=== PATIENT | male | born 1980 | race Caucasian/White ===

== ENCOUNTER 2017-05-10 20:16 | Emergency (ER) | payer MEDICAID ==
[~2017-05-10] VITALS: Ht 182.9 cm; Wt 76.2 kg
[~2017-05-10 20:16] MED LIST: BUPR75TA5 PO; CHLO25TA4 PO; CLON-364 PO; FLUO40CA9 PO; HALO10TA PO; LISI-167 PO; LISI5TAB7 PO; LITH150C PO; LITH600C PO; LORA-446 PO; MIRT30TA PO; NALT50TA PO; OLAN15TA3 PO; PROP10TA PO; PROP60TA PO; QUET25TA5 PO; QUET400T4 PO; TRIH5TAB2 PO; WARF5TAB7 PO
[2017-05-10] MEDS ORDERED: HALOPERIDOL 5 MG/ML ONE (22:03)
[2017-05-10] MEDS ORDERED: HALOPERIDOL 5 MG/ML IM ONE (22:23)
[2017-05-10 22:29] LABS: MEAN CORPUSCULAR VOLUME 91.2 fL (81-97); MEAN PLATELET VOLUME 9.6 fL (7.4-10.4); PLATELET COUNT 268 x10^3/uL (130-400); RED BLOOD COUNT 4.99 x10^6/uL (4.38-5.82); RED CELL DISTRIBUTION WIDTH 13.6 % (9.4-14.8)
[2017-05-10 22:37] LABS: ANION GAP 8 mmol/L (5-15); CHLORIDE 108 mmol/L (98-107)
[2017-05-10 22:38] LABS: ALBUMIN 3.8 g/dL (3.4-5.0); SALICYLATE LEVEL 4.8 mg/dL (2.8-20.0)
[2017-05-10 22:41] LABS: ACETAMINOPHEN < 2 mcg/mL (10-30)
[2017-05-10 22:50] LABS: BASOPHILS # (AUTO) 0.05 x10^3/uL (0-0.1); BASOPHILS % (AUTO) 0 % (0-1); EOSINOPHILS # (AUTO) 0.08 x10^3/uL (0-0.4); EOSINOPHILS % (AUTO) 1 % (1-7); LYMPHOCYTES % (AUTO) 15 % (22-44); MD SCAN; MONOCYTES # (AUTO) 1.57 x10^3/uL (0.2-0.8); MONOCYTES % (AUTO) 12 % (2-9); NEUTROPHILS # (AUTO) 9.29 x10^3/uL (1.8-6.8); NEUTROPHILS % (AUTO) 72 % (42-75)
[2017-05-10 22:58] VITALS: BP 141/87
== END 2017-05-11 00:10 | disposition home or self-care (01) ==
LOC: ED 22:40
DX: F23 Brief psychotic disorder (principal); F20.9 Schizophrenia, unspecified; I10 Essential (primary) hypertension; F31.9 Bipolar disorder, unspecified; G40.909 Epilepsy, unspecified, not intractable, without status epilepticus
CPT/HCPCS: 36415; 80048; 80307; 80329; 82040; 85025; 96372; 99284; J1630; G0479; G0480

== ENCOUNTER 2017-10-11 20:19 | Inpatient (IN) | payer MEDICAID ==
[~2017-10-11] VITALS: Ht 182.9 cm; Wt 78.1 kg
[~2017-10-11 20:19] MED LIST changes: +WARF-36 PO; -WARF5TAB7 PO
[2017-10-11] MEDS ORDERED: ZIPRASIDONE 20 MG INJ IM ONE ×2 (20:25→20:30)
[2017-10-11 20:39] LABS: BASOPHILS # (AUTO) 0.06 x10^3/uL (0-0.1); BASOPHILS % (AUTO) 1 % (0-1); EOSINOPHILS # (AUTO) 0.22 x10^3/uL (0-0.4); EOSINOPHILS % (AUTO) 3 % (1-7); LYMPHOCYTES # (AUTO) 3.31 x10^3/uL (1-3.4); LYMPHOCYTES % (AUTO) 45 % (22-44); MD NO; MEAN CORPUSCULAR HGB CONC 34.4 g/dL (33.2-36.2); MEAN PLATELET VOLUME 8.4 fL (7.4-10.4); MONOCYTES # (AUTO) 0.54 x10^3/uL (0.2-0.8); MONOCYTES % (AUTO) 7 % (2-9); NEUTROPHILS # (AUTO) 3.27 x10^3/uL (1.8-6.8); NEUTROPHILS % (AUTO) 44 % (42-75); PLATELET COUNT 255 x10^3/uL (130-400); RED CELL DISTRIBUTION WIDTH 13.3 % (9.4-14.8)
[2017-10-11 20:52] LABS: ALANINE AMINOTRANSFERASE 30 U/L (12-78); ALBUMIN 3.6 g/dL (3.4-5.0); ANION GAP 9 mmol/L (5-15); CALCIUM 8.9 mg/dL (8.5-10.1); CHLORIDE 109 mmol/L (98-107)
[2017-10-11 20:57] LABS: ALKALINE PHOSPHATASE 129 U/L (45-117); BILIRUBIN,TOTAL 0.2 mg/dL (0.2-1.0); TROPONIN I < 0.015 ng/mL (0.000-0.045)
[2017-10-11 21:02] LABS: THYROID STIMULATING HORMONE 0.949 mIU/L (0.358-3.740)
[2017-10-11 21:25] LABS: AMPHETAMINE SCREEN, URINE Positive (Negative); BARBITURATE SCREEN, URINE Negative (Negative); BENZODIAZEPINE SCREEN, URINE Positive (Negative); CANNABINOID SCREEN, URINE Negative (Negative); COCAINE SCREEN, URINE Negative (Negative); METHADONE SCREEN, URINE Negative (Negative); OPIATE SCREEN, URINE Negative (Negative)
[2017-10-11 22:15] VITALS: BP 110/78
[2017-10-11 22:58] VITALS: BP 111/74
[2017-10-11] MEDS ORDERED: BISACODYL 10 MG SUPP PR PRN (23:00)
[2017-10-11] MEDS ORDERED: HEPARIN 5,000 UNITS/ML, 1ML SQ SCH (23:00)
[2017-10-11] MEDS: LISINOPRIL 10 MG TABLET PO SCH (23:00)
[2017-10-11] MEDS: SODIUM CHLORIDE FLUSH 10ML SYR IVF SCH (23:00)
[2017-10-11] MEDS ORDERED: ACETAMINOPHEN 325 MG TABLET PO PRN (23:00)
[2017-10-11] MEDS ORDERED: hydrALAzine 20 MG/ML, 1ML IVPush PRN (23:00)
[2017-10-11] MEDS ORDERED: PROZAC MC SCH (23:00)
[2017-10-11] MEDS ORDERED: HALOPERIDOL 5 MG TABLET PO PRN (23:00)
[2017-10-11] MEDS ORDERED: ONDANSETRON 2MG/ML, 2ML IVPush PRN (23:00)
[2017-10-11] MEDS: PROPRANOLOL 60 MG TABLET PO SCH (23:00)
[2017-10-11] MEDS: QUETIAPINE 200 MG TABLET PO SCH (23:00)
[2017-10-11] MEDS ORDERED: POLYETHYLENE GLYCOL 17 GM PACKET PO PRN (23:00)
[2017-10-11] MEDS ORDERED: NITROGLYCERIN 0.4 MG BOTTLE (25 TABS) SL PRN (23:00)
[2017-10-11 23:06] LABS: INTERNATIONAL NORMALIZED RATIO 1.02 (0.93-1.1); PROTHROMBIN TIME 10.5 Seconds (9.6-11.5)
[2017-10-12 02:29] VITALS: BP 113/71
[2017-10-12 02:40] LABS: BASOPHILS # (AUTO) 0.11 x10^3/uL (0-0.1); BASOPHILS % (AUTO) 2 % (0-1); EOSINOPHILS # (AUTO) 0.29 x10^3/uL (0-0.4); EOSINOPHILS % (AUTO) 5 % (1-7); LYMPHOCYTES # (AUTO) 3.08 x10^3/uL (1-3.4); LYMPHOCYTES % (AUTO) 52 % (22-44); MD NO; MEAN CORPUSCULAR HEMOGLOBIN 31.7 pg (27.5-34.5); MEAN CORPUSCULAR HGB CONC 33.8 g/dL (33.2-36.2); MEAN CORPUSCULAR VOLUME 93.8 fL (81-97); MEAN PLATELET VOLUME 8.5 fL (7.4-10.4); MONOCYTES # (AUTO) 0.31 x10^3/uL (0.2-0.8); MONOCYTES % (AUTO) 5 % (2-9); NEUTROPHILS # (AUTO) 2.18 x10^3/uL (1.8-6.8); NEUTROPHILS % (AUTO) 37 % (42-75); PLATELET COUNT 246 x10^3/uL (130-400); RED BLOOD COUNT 5.62 x10^6/uL (4.38-5.82); RED CELL DISTRIBUTION WIDTH 14.1 % (9.4-14.8)
[2017-10-12 02:47] LABS: TROPONIN I < 0.015 ng/mL (0.000-0.045)
[2017-10-12 02:48] LABS: ALANINE AMINOTRANSFERASE 32 U/L (12-78); ALBUMIN 3.7 g/dL (3.4-5.0); ANION GAP 7 mmol/L (5-15); CALCIUM 8.6 mg/dL (8.5-10.1); CHLORIDE 112 mmol/L (98-107); CREATININE 0.84 mg/dL (0.7-1.3)
[2017-10-12 02:50] LABS: ALKALINE PHOSPHATASE 136 U/L (45-117); BILIRUBIN,TOTAL 0.4 mg/dL (0.2-1.0); TOTAL PROTEIN 7.1 g/dL (6.4-8.2)
[2017-10-12 06:13] VITALS: BP 108/68
[2017-10-12 08:08] VITALS: BP 148/99
[2017-10-12] MEDS: SENNA/DOCUSATE TABLET PO SCH (09:00)
[2017-10-12 09:10] LABS: TROPONIN I < 0.015 ng/mL (0.000-0.045)
[2017-10-12] MEDS: NALTREXONE HCL 50 MG TABLET PO SCH (09:22)
[2017-10-12] MEDS: LISINOPRIL 10 MG TABLET PO SCH ×2 (09:22→21:17)
[2017-10-12] MEDS: PROPRANOLOL 60 MG TABLET PO SCH ×2 (09:23→21:17)
[2017-10-12] MEDS: SODIUM CHLORIDE FLUSH 10ML SYR IVF SCH ×2 (09:23→21:16)
[2017-10-12] MEDS: FLUOXETINE HCL 20 MG CAPSULE PO SCH (09:23)
[2017-10-12] MEDS: MIRTAZAPINE 30 MG TAB.RAPDIS PO SCH (10:08)
[2017-10-12 13:18] VITALS: BP 133/96
[2017-10-12] MEDS ORDERED: MAALOX/HYOSCYAMINE/LIDOCAINE 45 ML BTL PO ONE (16:30)
[2017-10-12] MEDS: OMEPRAZOLE 20 MG CAPSULE.DR PO SCH (16:59)
[2017-10-12] MEDS ORDERED: WARFARIN 7.5 MG TABLET PO-COUM SCH (18:00)
[2017-10-12 18:35] VITALS: BP 137/77
[2017-10-12] MEDS: QUETIAPINE 200 MG TABLET PO SCH (21:17)
[2017-10-13 02:03] VITALS: BP 133/79
[2017-10-13 06:30] VITALS: BP 97/65
[2017-10-13] MEDS: SENNA/DOCUSATE TABLET PO SCH (09:00)
[2017-10-13 09:45] VITALS: BP 119/74
[2017-10-13] MEDS: OMEPRAZOLE 20 MG CAPSULE.DR PO SCH (09:45)
[2017-10-13] MEDS: FLUOXETINE HCL 20 MG CAPSULE PO SCH (09:45)
[2017-10-13] MEDS: NALTREXONE HCL 50 MG TABLET PO SCH (09:46)
[2017-10-13] MEDS: MIRTAZAPINE 30 MG TAB.RAPDIS PO SCH (09:46)
[2017-10-13] MEDS: SODIUM CHLORIDE FLUSH 10ML SYR IVF SCH (09:46)
[2017-10-13] MEDS: PROPRANOLOL 60 MG TABLET PO SCH (09:46)
[2017-10-13] MEDS: LISINOPRIL 10 MG TABLET PO SCH (09:46)
[2017-10-13] MEDS ORDERED: WARF7.5T PO-COUM (10:41)
[2017-10-13] MEDS ORDERED: CHLO25TA4 PO (10:41)
[2017-10-13] MEDS ORDERED: QUET200T PO (10:41)
[2017-10-13] MEDS ORDERED: FLUO20CA8 PO (10:41)
[2017-10-13] MEDS ORDERED: LISI-167 PO (10:41)
[2017-10-13] MEDS ORDERED: MIRT30TA6 PO (10:41)
[2017-10-13] MEDS ORDERED: PROP60TA PO (11:48)
[2017-10-13] MEDS ORDERED: MIRT30TA4 PO (11:50)
[2017-10-13 12:55] VITALS: BP 123/78
[2017-10-14 10:07] LABS: CREATININE 0.93 mg/dL (0.7-1.3); MEAN CORPUSCULAR HEMOGLOBIN 32.4 pg (27.5-34.5); RED BLOOD COUNT 5.31 x10^6/uL (4.38-5.82)
== END 2017-10-13 13:59 | disposition home or self-care (01) | DRG 313 ==
LOC: EDSEX → EDBD → MERGE 20:19 → ED 22:24 → EDIP 22:38 → 5SO 22:47
PROVIDERS: ADMIT Internal Medicine; ATTEND Internal Medicine
DX: R07.89 Other chest pain (principal); T43.625A Adverse effect of amphetamines, initial encounter; F10.10 Alcohol abuse, uncomplicated; F15.10 Other stimulant abuse, uncomplicated; Z88.0 Allergy status to penicillin; F17.200 Nicotine dependence, unspecified, uncomplicated; F20.9 Schizophrenia, unspecified; F31.9 Bipolar disorder, unspecified; K21.9 Gastro-esophageal reflux disease without esophagitis; G40.909 Epilepsy, unspecified, not intractable, without status epilepticus; I10 Essential (primary) hypertension; I25.2 Old myocardial infarction; Z86.711 Personal history of pulmonary embolism
CPT/HCPCS: 36415; 71045; 80053; 80307; 82962; 84443; 84484; 85025; 85379; 85610; 93005; 93306; 99285; J2405

== ENCOUNTER 2017-10-29 00:23 | Emergency (ER) | payer MEDICAID ==
[~2017-10-29] VITALS: Ht 182.9 cm; Wt 100.0 kg
[~2017-10-29 00:23] MED LIST changes: +FLUO20CA8 PO; +MIRT30TA4 PO; +MIRT30TA6 PO; +QUET200T PO; +WARF7.5T PO-COUM
[2017-10-29] MEDS ORDERED: ZIPRASIDONE 20 MG INJ IM ONE ×3 (01:00→01:30)
[2017-10-29 01:57] LABS: BASOPHILS # (AUTO) 0.05 x10^3/uL (0-0.1); BASOPHILS % (AUTO) 1 % (0-1); EOSINOPHILS # (AUTO) 0.16 x10^3/uL (0-0.4); EOSINOPHILS % (AUTO) 3 % (1-7); LYMPHOCYTES % (AUTO) 41 % (22-44); MD NO; MEAN CORPUSCULAR HEMOGLOBIN 32.1 pg (27.5-34.5); MEAN CORPUSCULAR HGB CONC 34.4 g/dL (33.2-36.2); MEAN CORPUSCULAR VOLUME 93.2 fL (81-97); MEAN PLATELET VOLUME 8.6 fL (7.4-10.4); MONOCYTES # (AUTO) 0.54 x10^3/uL (0.2-0.8); MONOCYTES % (AUTO) 8 % (2-9); NEUTROPHILS # (AUTO) 3.14 x10^3/uL (1.8-6.8); NEUTROPHILS % (AUTO) 48 % (42-75); PLATELET COUNT 253 x10^3/uL (130-400); RED BLOOD COUNT 4.75 x10^6/uL (4.38-5.82); RED CELL DISTRIBUTION WIDTH 12.8 % (9.4-14.8)
[2017-10-29 02:09] LABS: ALBUMIN 3.6 g/dL (3.4-5.0); ANION GAP 11 mmol/L (5-15); CALCIUM 8.1 mg/dL (8.5-10.1); CHLORIDE 112 mmol/L (98-107); CREATININE 0.83 mg/dL (0.7-1.3); SALICYLATE LEVEL 6.1 mg/dL (2.8-20.0)
[2017-10-29 02:15] LABS: ACETAMINOPHEN < 2 mcg/mL (10-30)
[2017-10-29 08:15] VITALS: BP 145/84
== END 2017-10-29 10:03 | disposition home or self-care (01) ==
LOC: ED 00:35
DX: R45.851 Suicidal ideations (principal); F10.20 Alcohol dependence, uncomplicated; G40.909 Epilepsy, unspecified, not intractable, without status epilepticus; Z79.899 Other long term (current) drug therapy
CPT/HCPCS: 36415; 80048; 80307; 80329; 82040; 85025; 96372; 99284; J3486; G0480

== ENCOUNTER 2018-01-30 18:09 | Emergency (ER) | payer MEDICAID ==
[~2018-01-30] VITALS: Ht 182.9 cm; Wt 75.6 kg
[~2018-01-30 18:09] MED LIST changes: -CLON-364 PO; +CLON0.5T11 PO
[2018-01-30 19:17] VITALS: BP 101/64
== END 2018-01-30 19:37 | disposition left against medical advice (07) ==
LOC: ED 19:34
DX: F15.129 Other stimulant abuse with intoxication, unspecified (principal); G40.909 Epilepsy, unspecified, not intractable, without status epilepticus; I10 Essential (primary) hypertension
CPT/HCPCS: 99283

== ENCOUNTER 2018-05-20 10:50 | Emergency (ER) | payer MEDICAID ==
[~2018-05-20] VITALS: Ht 182.9 cm; Wt 74.8 kg
[~2018-05-20 10:50] MED LIST changes: -PROP10TA PO; +PROP10TA16 PO
[2018-05-20 10:54] VITALS: BP 88/49
--- NOTE | 2018-05-20 11:41 | NUR ---
PT TO ROOM ROOM SECURED BELONGINGS REMOVED AND SECURED STS HE IS NOT SI BUT WILL KILL HIMSELF IF HE DOES NOT GET HELP AND FOOD
--- NOTE | 2018-05-20 11:45 | NUR ---
PT REFUSED TO GIVE UP CELL PHONE AND CALLED 911 SECURITY REMOVED THE PHONE FROM THE PT LITHOGRAPHIC PRESS OPERATOR CALLED US AND WAS PROVIDED THE INFORMATION RE THE SITUATION
--- NOTE | 2018-05-20 11:51 | NUR ---
ERP TO THE BS ERP TO DC PT AFTER EXAM
== END 2018-05-20 11:58 | disposition home or self-care (01) ==
LOC: ED 11:45
DX: F20.0 Paranoid schizophrenia (principal); F17.200 Nicotine dependence, unspecified, uncomplicated; F31.9 Bipolar disorder, unspecified; I10 Essential (primary) hypertension; G40.909 Epilepsy, unspecified, not intractable, without status epilepticus
CPT/HCPCS: 99284

== ENCOUNTER 2018-10-08 12:44 | Emergency (ER) | payer MEDICAID ==
[~2018-10-08] VITALS: Ht 182.9 cm; Wt 78.0 kg
[~2018-10-08 12:44] MED LIST changes: -MIRT30TA6 PO; +MIRT30TA97 PO
[2018-10-08] MEDS ORDERED: LORazepam 2 MG/ML, 1ML IM ONE (13:00)
[2018-10-08] MEDS ORDERED: ZIPRASIDONE 20 MG INJ IM ONE ×2 (13:00→13:01)
[2018-10-08] MEDS ORDERED: LORazepam 2 MG/ML, 1ML ONE (13:01)
--- NOTE | 2018-10-08 13:33 | NUR ---
BIB [facility]OC SCREAMING THREATENING SI BY TRAFFIC VERBALLY ASSAULTIVE TO STAFF ON ARRIVAL REFUSING VITAL AND MOST ASSESMENT QUESTIONS REFUSING MONITORING PT PLACED IN A SECURE ROOM W A SITTER BELONGINGS REMOVED AND SECURED MEDS GIVEN PER ORDERS SITTER IN THE PLASCENCIA
--- NOTE | 2018-10-08 14:57 | NUR ---
ABLE TO ASSES VITAL PT REMAINS SLEEPING AT THIS TIME
[2018-10-08 15:38] LABS: BASOPHILS # (AUTO) 0.04 x10^3/uL (0-0.1); BASOPHILS % (AUTO) 1 % (0-1); EOSINOPHILS % (AUTO) 2 % (1-7); LYMPHOCYTES # (AUTO) 1.92 x10^3/uL (1-3.4); LYMPHOCYTES % (AUTO) 44 % (22-44); MD NO; MEAN CORPUSCULAR HEMOGLOBIN 31.5 pg (27.5-34.5); MEAN CORPUSCULAR HGB CONC 33.7 g/dL (33.2-36.2); MEAN CORPUSCULAR VOLUME 93.5 fL (81-97); MEAN PLATELET VOLUME 8.3 fL (7.4-10.4); MONOCYTES # (AUTO) 0.23 x10^3/uL (0.2-0.8); MONOCYTES % (AUTO) 5 % (2-9); NEUTROPHILS % (AUTO) 48 % (42-75); PLATELET COUNT 240 x10^3/uL (130-400); RED BLOOD COUNT 5.09 x10^6/uL (4.38-5.82); RED CELL DISTRIBUTION WIDTH 13.7 % (9.4-14.8)
[2018-10-08 15:58] LABS: ALBUMIN 3.8 g/dL (3.4-5.0); ANION GAP 5 mmol/L (5-15); CALCIUM 8.4 mg/dL (8.5-10.1); CHLORIDE 115 mmol/L (98-107); SALICYLATE LEVEL 5.7 mg/dL (2.8-20.0)
[2018-10-08 16:01] LABS: ALANINE AMINOTRANSFERASE 23 U/L (12-78); ALKALINE PHOSPHATASE 103 U/L (45-117); CREATININE 0.96 mg/dL (0.7-1.3); TOTAL PROTEIN 7.3 g/dL (6.4-8.2)
[2018-10-08 16:05] LABS: ACETAMINOPHEN < 2 mcg/mL (10-30); BILIRUBIN,TOTAL < 0.1 mg/dL (0.2-1.0)
[2018-10-08 17:33] VITALS: BP 134/95
--- NOTE | 2018-10-08 18:13 | NUR ---
PT REMAINS SLEEPING MOST OF THE DAY COOPERATIVE SITTER HAS REMAINED IN THE PLASCENCIA WATCHING THE PT
--- NOTE | 2018-10-08 19:10 | NUR ---
RECEIVED REPORT FROM LIZET Wolfe RN. PT RESTING IN [facility] IN NAD BEING OBSERVED BY IVAN. BREATHALIZER WAS 0.169. PT UPDATED ON POC.
--- NOTE | 2018-10-08 20:40 | NUR ---
PT RESTING IN NAD BEING OBSERVED BY SITTER. WAITING FOR PT TO BECOME SOBER TO HAVE PT RE-EVALUATED.
--- NOTE | 2018-10-08 22:26 | NUR ---
REPORT TO CHARLES CHAPMAN.
--- NOTE | 2018-10-08 22:47 | NUR ---
ASSUMED CARE OF PATIENT. REPORT GIVEN FROM ARI WISE
--- NOTE | 2018-10-08 23:08 | NUR ---
PT RESTING IN ROOM. NO ACUTE DISTRESS NOTED. CALL LIGHT IN PLACE. WILL CONTINUE TO MONITOR.
--- NOTE | 2018-10-08 23:24 | NUR ---
TELEPSYCH INITIATED. 27170 BOT PLACED AT BS.
--- NOTE | 2018-10-08 23:29 | NUR ---
PT RESTING IN ROOM. NO ACUTE DISTRESS NOTED. SITTER AT DOOR. WILL CONTINUE TO MONITOR.
[2018-10-08] MEDS ORDERED: IBUPROFEN 600 MG TABLET PO ONE (23:30)
--- NOTE | 2018-10-09 00:20 | NUR ---
REPORT GIVEN TO SOC.
--- NOTE | 2018-10-09 01:20 | NUR ---
pt asking to leave. ERP OKAY WITH PT LEAVING. PT HAS NOT EXPRESSED SI TO THIS RN. PT BELONGINGS RETURNED. PT ABLE TO DRESS HIMSELF. PT GIVEN TAXI VOUCHER FOR SAFE DC. PT AMBULATED STEADILY TO DC DESK.
== END 2018-10-09 01:16 | disposition home or self-care (01) ==
LOC: ED 16:21
DX: F20.0 Paranoid schizophrenia (principal); F15.150 Other stimulant abuse with stimulant-induced psychotic disorder with delusions; F10.229 Alcohol dependence with intoxication, unspecified; F31.9 Bipolar disorder, unspecified; I10 Essential (primary) hypertension; F41.1 Generalized anxiety disorder; F20.9 Schizophrenia, unspecified; F17.210 Nicotine dependence, cigarettes, uncomplicated; Z86.718 Personal history of other venous thrombosis and embolism; G40.909 Epilepsy, unspecified, not intractable, without status epilepticus
CPT/HCPCS: 36415; 80053; 80307; 85025; 96372; 99284; J2060; J3486

== ENCOUNTER 2018-11-28 11:28 | Emergency (ER) | payer MEDICAID ==
[~2018-11-28] VITALS: Ht 182.9 cm; Wt 73.9 kg
[2018-11-28 11:30] VITALS: BP 130/90
== END 2018-11-28 13:32 | disposition home or self-care (01) ==
LOC: ED 12:26
DX: L02.512 Cutaneous abscess of left hand (principal); I10 Essential (primary) hypertension; L03.012 Cellulitis of left finger
CPT/HCPCS: 26010; 82962; 99283

== ENCOUNTER 2019-05-22 23:27 | Emergency (ER) | payer MEDICAID ==
[~2019-05-22] VITALS: Ht 182.9 cm; Wt 73.9 kg
--- NOTE | 2019-05-22 23:37 | NUR ---
PT YELLING AT STAFF AT THIS TIME, ENCOURAGED TO PLEASE NOT DO THIS, CONSUELO ADAMS TALKING WITH PT AT THIS TIME.
--- NOTE | 2019-05-22 23:38 | NUR ---
PT IN WHEELCHAIR AT NURSES STATION AT THIS TIME, AWATING ROOM AVAILABILITY AND PT IN VIEW OF NURSING STAFF FOR PT SAFETY.
[2019-05-22] MEDS ORDERED: LORazepam 1MG TABLET ONE (23:44)
--- NOTE | 2019-05-22 23:46 | NUR ---
MEDICATED PER ORDER AT THIS TIME, ENCOURAGE PO FLUIDS
--- NOTE | 2019-05-22 23:47 | NUR ---
PT CHOOSING TO LAY ON FLOOR AT THIS TIME DESPITE ENCOURAGEMENT NOT TO.
--- NOTE | 2019-05-22 23:55 | NUR ---
PT AMBULATORY WITH STEADY GAIT AT THIS TIME TO HIS ROOM.
[2019-05-23] MEDS ORDERED: LORazepam 1MG TABLET PO ONE
--- NOTE | 2019-05-23 00:30 | NUR ---
PT RESTING QUEITLY ON HIS MATTRESS. NAD.
--- NOTE | 2019-05-23 01:39 | NUR ---
PT REMAINS ASLEEP IN HIS ROOM. RR 14 AND UNLABORED. NAD
--- NOTE | 2019-05-23 05:43 | NUR ---
PT AMBULATORY TO RR AND BACK INTO BED. MD TO BEDSIDE TO DISCUSS POC. PT TO BE DISCHARGED. PT AGREED TO TAXI VOUCHER HOME.
--- NOTE | 2019-05-23 05:49 | NUR ---
PT AA AND O TIMES 4 AND AMBULATORY WITH STEADY GAIT, DRESSES SELF AND IS PROVIDED WITH CAB VOUCHER TO [facility] FOR SAFE DISCHARGE. ENCOURAGED TO AVOID DRUGS AND ALCOHOL, ESPECIALLY METHAMPHETAMINE THIS RAMA CERTAINLY DOES NOT AGREE WITH HIM
[2019-05-23 05:56] VITALS: BP 121/74
== END 2019-05-23 05:58 | disposition home or self-care (01) ==
LOC: ED 23:53
DX: F15.10 Other stimulant abuse, uncomplicated (principal); I10 Essential (primary) hypertension; G40.909 Epilepsy, unspecified, not intractable, without status epilepticus
CPT/HCPCS: 99283

== ENCOUNTER 2019-07-30 21:03 | Emergency (ER) | payer MEDICAID ==
[~2019-07-30] VITALS: Ht 182.9 cm; Wt 87.0 kg
[~2019-07-30 21:03] MED LIST changes: +CLON-364 PO; -CLON0.5T11 PO; +FLUO20CA23 PO; -FLUO20CA8 PO
--- NOTE | 2019-07-30 21:21 | NUR ---
furniture repair technician:Razor knife secured from pt and placed in baggy w/ sticker. Taken to security by this rn.
--- NOTE | 2019-07-30 21:35 | NUR ---
PT BELONGINGS SECURED IN LOCKER IN 4 OF 4 BAGS. PT PLACED IN GOWN ON GURNEY, ROOM SECURED. PT REPORTS CURRENT SI WITH PLAN TO OVERDOSE ON PRESCRIPTION DRUGS, PT REPORTS HAVING ACCESS TO MEDICATIONS. PT REPORTS "IM HAVING PROBLEMS WITH MY GIRLFRIEND SO IM SUICIDAL". PT REPORTS NOT TAKING HIS PSYCHIATRIC MEDICATIONS FOR X2 WEEKS, SEROQUEL AND LITHIUM, REPORTS STILL TAKING ELIQUIS EVERYDAY. ERMD IN ROOM TO EVAL PT AT THIS TIME. PT RESTING ON GURNEY, DENIES FURTHER NEEDS AT THIS TIME.
[2019-07-30] MEDS ORDERED: LORazepam 1MG TABLET PO ONE ×2 (22:00)
[2019-07-30 22:05] LABS: BASOPHILS # (AUTO) 0.07 x10^3/uL (0-0.1); BASOPHILS % (AUTO) 1 % (0-1); EOSINOPHILS # (AUTO) 0.15 x10^3/uL (0-0.4); EOSINOPHILS % (AUTO) 2 % (1-7); LYMPHOCYTES # (AUTO) 2.49 x10^3/uL (1-3.4); LYMPHOCYTES % (AUTO) 26 % (22-44); MD NO; MEAN CORPUSCULAR HEMOGLOBIN 31.5 pg (27.5-34.5); MEAN CORPUSCULAR HGB CONC 33.9 g/dL (33.2-36.2); MEAN PLATELET VOLUME 8.3 fL (7.4-10.4); MONOCYTES # (AUTO) 0.92 x10^3/uL (0.2-0.8); MONOCYTES % (AUTO) 10 % (2-9); NEUTROPHILS # (AUTO) 5.93 x10^3/uL (1.8-6.8); NEUTROPHILS % (AUTO) 62 % (42-75); PLATELET COUNT 268 x10^3/uL (130-400); RED CELL DISTRIBUTION WIDTH 12.8 % (9.4-14.8)
[2019-07-30] MEDS ORDERED: LORazepam 1MG TABLET ONE (22:10)
[2019-07-30 22:14] LABS: ALANINE AMINOTRANSFERASE 36 U/L (12-78); ALBUMIN 4.1 g/dL (3.4-5.0); ANION GAP 6 mmol/L (5-15); CALCIUM 9.2 mg/dL (8.5-10.1); CHLORIDE 109 mmol/L (98-107); CREATININE 0.82 mg/dL (0.7-1.3); SALICYLATE LEVEL 3.5 mg/dL (2.8-20.0)
[2019-07-30 22:16] LABS: ALKALINE PHOSPHATASE 89 U/L (45-117); BILIRUBIN,TOTAL 0.3 mg/dL (0.2-1.0); TOTAL PROTEIN 7.4 g/dL (6.4-8.2)
--- NOTE | 2019-07-30 22:19 | NUR ---
PT PLACED ON HOLD BY IVAN WRIGHT IN [facility], ROOM SECURED.
[2019-07-30 22:35] LABS: AMPHETAMINE SCREEN, URINE Negative (Negative); BARBITURATE SCREEN, URINE Negative (Negative); BENZODIAZEPINE SCREEN, URINE Negative (Negative); CANNABINOID SCREEN, URINE Negative (Negative); COCAINE SCREEN, URINE Negative (Negative); METHADONE SCREEN, URINE Negative (Negative); OPIATE SCREEN, URINE Negative (Negative)
--- NOTE | 2019-07-31 00:22 | NUR ---
BREAK RN: pt resting in room. no acute distress noted. sitter at door. will continue to monitor while primary rn is on break.
--- NOTE | 2019-07-31 01:08 | NUR ---
REFERRAL WAS FAXED TO [facility], [facility], AND [facility]
--- NOTE | 2019-07-31 01:22 | NUR ---
[facility] called per Tati they are not contracted with pt's insurance and he would have to pay out of pocket
--- NOTE | 2019-07-31 01:41 | NUR ---
PT RESTING ON GURNEY WITH EYES CLOSED, RESPIRAITONS EVEN AND NON LABORED. ROOM SECURED, SITTER IN HALLWAY WITHIN LINE OR SIGHT.
[2019-07-31 02:39] VITALS: BP 132/89
[2019-07-31] MEDS ORDERED: lithium (04:48)
[2019-07-31] MEDS ORDERED: ELAQUIS (04:50)
== END 2019-07-31 02:59 | disposition home or self-care (01) ==
LOC: ED 22:29
DX: R45.851 Suicidal ideations (principal); F20.9 Schizophrenia, unspecified; I10 Essential (primary) hypertension
CPT/HCPCS: 36415; 80053; 80307; 85025; 99283

== ENCOUNTER 2019-07-31 02:56 | Inpatient (IN) | payer MEDICAID ==
[~2019-07-31] VITALS: Ht 182.9 cm; Wt 80.4 kg
[2019-07-31 03:02] VITALS: BP 131/95
[2019-07-31] MEDS ORDERED: BISACODYL 10 MG SUPP PR PRN (04:00)
[2019-07-31] MEDS ORDERED: ACETAMINOPHEN 325 MG TABLET PO PRN (04:00)
[2019-07-31] MEDS ORDERED: DOCUSATE 100 MG CAPSULE PO PRN (04:00)
[2019-07-31] MEDS ORDERED: POLYETHYLENE GLYCOL 17 GM PACKET PO PRN (04:00)
[2019-07-31] MEDS ORDERED: ONDANSETRON ODT 4 MG PO PRN (04:00)
[2019-07-31] MEDS ORDERED: LORazepam 1MG TABLET PO PRN (04:00)
[2019-07-31 04:11] VITALS: BP 131/95
[2019-07-31] MEDS ORDERED: lithium (04:48)
[2019-07-31] MEDS ORDERED: ELAQUIS (04:50)
[2019-07-31 05:06] LABS: CHOL/HDL RATIO 2.3; FREE T4 (FREE THYROXINE) 0.83 ng/dL (0.76-1.46); LDL/HDL RATIO 1.2 (0.5-3.0)
[2019-07-31 05:12] LABS: INTERNATIONAL NORMALIZED RATIO 0.94 (0.93-1.1)
[2019-07-31 05:15] LABS: MICROSCOPIC INDICATED
[2019-07-31 05:16] LABS: CULTURE INDICATED? NO
[2019-07-31 07:39] VITALS: BP 131/86
[2019-07-31] MEDS: NICOTINE 21 MG/24 HR PATCH.TD24 TD SCH (08:51)
[2019-07-31] MEDS: LITHIUM CARBONATE 150 MG CAPSULE PO SCH ×2 (09:21→20:20)
[2019-07-31] MEDS: APIXABAN 5 MG TABLET PO SCH ×2 (09:21→20:21)
[2019-07-31] MEDS: AMANTADINE 100 MG CAPSULE PO SCH ×2 (09:21→20:21)
[2019-07-31] MEDS: AMLODIPINE 5 MG TABLET PO SCH (09:21)
[2019-07-31] MEDS: QUETIAPINE 200 MG TABLET PO SCH ×2 (09:21→20:20)
[2019-07-31 19:24] VITALS: BP 107/73
[2019-07-31 19:50] LABS: MICROSCOPIC NOT IND
[2019-07-31 20:00] LABS: CULTURE INDICATED? NO
[2019-08-01 07:46] VITALS: BP 119/84
[2019-08-01] MEDS: QUETIAPINE 200 MG TABLET PO SCH ×2 (08:34→20:29)
[2019-08-01] MEDS: APIXABAN 5 MG TABLET PO SCH ×2 (08:34→20:29)
[2019-08-01] MEDS: AMANTADINE 100 MG CAPSULE PO SCH ×2 (08:34→20:29)
[2019-08-01] MEDS: AMLODIPINE 5 MG TABLET PO SCH (08:35)
[2019-08-01] MEDS: LITHIUM CARBONATE 150 MG CAPSULE PO SCH ×2 (08:35→20:30)
[2019-08-01] MEDS: NICOTINE 21 MG/24 HR PATCH.TD24 TD SCH (08:35)
[2019-08-01 19:27] VITALS: BP 121/75
[2019-08-02 07:00] VITALS: BP 109/74
[2019-08-02] MEDS: AMLODIPINE 5 MG TABLET PO SCH (07:59)
[2019-08-02] MEDS: APIXABAN 5 MG TABLET PO SCH ×2 (08:00→20:43)
[2019-08-02] MEDS: AMANTADINE 100 MG CAPSULE PO SCH ×2 (08:00→20:43)
[2019-08-02] MEDS: LITHIUM CARBONATE 150 MG CAPSULE PO SCH ×2 (08:00→20:44)
[2019-08-02] MEDS: QUETIAPINE 200 MG TABLET PO SCH ×2 (08:00→20:44)
[2019-08-02] MEDS: NICOTINE 21 MG/24 HR PATCH.TD24 TD SCH (08:12)
--- NOTE | 2019-08-02 13:39 | NUR ---
PATIENT WAS GIVEN 200MG @ 8AM TODAY 08/02/19 , 700MG IS SCHEDULED FOR TONIGHT @2100 WHICH WILL PUT THE PATIENT AT 900MG PER DAY. THE MAX RECOMMENDED DOSE IS 800MG/DAY, PLEASE CLARIFIY DOSE
[2019-08-02 19:25] VITALS: BP 118/75
[2019-08-03 07:00] VITALS: BP 113/76
[2019-08-03] MEDS: NICOTINE 21 MG/24 HR PATCH.TD24 TD SCH (07:35)
[2019-08-03] MEDS: APIXABAN 5 MG TABLET PO SCH ×2 (07:35→20:37)
[2019-08-03] MEDS: AMANTADINE 100 MG CAPSULE PO SCH ×2 (07:35→20:36)
[2019-08-03] MEDS: AMLODIPINE 5 MG TABLET PO SCH (07:36)
[2019-08-03] MEDS: LITHIUM CARBONATE 150 MG CAPSULE PO SCH ×2 (07:36→20:36)
[2019-08-03] MEDS: QUETIAPINE 100MG TABLET PO SCH (07:36)
[2019-08-03 20:00] VITALS: BP 144/84
[2019-08-03] MEDS: QUETIAPINE 200 MG TABLET PO SCH (20:36)
[2019-08-04 05:43] LABS: CREATININE 1.03 mg/dL (0.7-1.3)
[2019-08-04 07:10] VITALS: BP 112/76
[2019-08-04] MEDS: APIXABAN 5 MG TABLET PO SCH (08:28)
[2019-08-04] MEDS: LITHIUM CARBONATE 150 MG CAPSULE PO SCH (08:38)
[2019-08-04] MEDS: AMLODIPINE 5 MG TABLET PO SCH (08:39)
[2019-08-04] MEDS: QUETIAPINE 100MG TABLET PO SCH (08:41)
[2019-08-04] MEDS: NICOTINE 21 MG/24 HR PATCH.TD24 TD SCH (08:42)
[2019-08-04] MEDS: AMANTADINE 100 MG CAPSULE PO SCH (09:00)
[2019-08-04] MEDS ORDERED: LITH150C PO (13:09)
[2019-08-04] MEDS ORDERED: AMAN100C7 PO (13:09)
[2019-08-04] MEDS ORDERED: QUET200T PO (13:09)
[2019-08-04] MEDS ORDERED: APIX5TAB PO (13:09)
[2019-08-04] MEDS ORDERED: QUET100T PO (13:09)
[2019-08-04] MEDS ORDERED: NICO-487 TD (13:09)
[2019-08-04] MEDS ORDERED: AMLO-150 PO (13:09)
== END 2019-08-04 13:30 | disposition home or self-care (01) | DRG 750 ==
LOC: 3E 02:57
PROVIDERS: ADMIT Psychiatry & Neurology Psychosomatic Medicine; ATTEND Psychiatry & Neurology Psychosomatic Medicine
DX: F25.0 Schizoaffective disorder, bipolar type (principal); R45.851 Suicidal ideations; I11.0 Hypertensive heart disease with heart failure; I50.9 Heart failure, unspecified; F11.21 Opioid dependence, in remission; F17.200 Nicotine dependence, unspecified, uncomplicated; F41.9 Anxiety disorder, unspecified; G24.01 Drug induced subacute dyskinesia; R29.6 Repeated falls; Z59.9 Problem related to housing and economic circumstances, unspecified; Z79.01 Long term (current) use of anticoagulants; Z86.711 Personal history of pulmonary embolism; Z86.718 Personal history of other venous thrombosis and embolism; Z91.5 Personal history of self-harm; Z88.0 Allergy status to penicillin; Z88.8 Allergy status to other drugs, medicaments and biological substances
CPT/HCPCS: 36415; 80061; 80178; 81001; 81003; 82565; 82607; 84439; 84443; 85610; 93005

== ENCOUNTER 2019-08-13 12:51 | Emergency (ER) | payer MEDICAID ==
[~2019-08-13] VITALS: Ht 188 cm; Wt 78.0 kg
[~2019-08-13 12:51] MED LIST changes: +AMAN100C7 PO; +AMLO-150 PO; +APIX5TAB PO; +ELAQUIS; +NICO-487 TD; +QUET100T PO; +lithium
[2019-08-13 13:07] VITALS: BP 140/48
--- NOTE | 2019-08-13 13:12 | NUR ---
PT BIB BY [facility] FOR ETHOH AND SI. PT SAID HE "SWALLOWED SOME PILLS AND I DONT KNOW WHICH ONES. THIS WAS AT 0530. I ONLY DRANK 2 BEERS TODAY" PT IS SLURRING HIS SPEECH AND HAS BEEN VERBALLY COMBATIVE - DEMANDING HE GETS SOME RESPECT. PT IS NOT A LEGAL HOLD AT THIS TIME. HOWEVER, SI PRECAUTIONS ARE IN PLACE. PT BELONGINGS ARE LABELED IN 2 WHITE PT BAGS
--- NOTE | 2019-08-13 13:13 | NUR ---
REPORT RECEIVED FROM SAMMI CHAPMAN.
--- NOTE | 2019-08-13 13:40 | NUR ---
UA SENT AT THIS TIME.
[2019-08-13 14:03] LABS: AMPHETAMINE SCREEN, URINE Positive (Negative); BARBITURATE SCREEN, URINE Negative (Negative); BENZODIAZEPINE SCREEN, URINE Negative (Negative); CANNABINOID SCREEN, URINE Negative (Negative); COCAINE SCREEN, URINE Negative (Negative); METHADONE SCREEN, URINE Negative (Negative); OPIATE SCREEN, URINE Negative (Negative)
[2019-08-13 14:11] LABS: BASOPHILS # (AUTO) 0.03 x10^3/uL (0-0.1); BASOPHILS % (AUTO) 1 % (0-1); EOSINOPHILS # (AUTO) 0.24 x10^3/uL (0-0.4); EOSINOPHILS % (AUTO) 5 % (1-7); LYMPHOCYTES # (AUTO) 2.17 x10^3/uL (1-3.4); LYMPHOCYTES % (AUTO) 45 % (22-44); MD NO; MEAN CORPUSCULAR HEMOGLOBIN 31.1 pg (27.5-34.5); MEAN CORPUSCULAR HGB CONC 33.6 g/dL (33.2-36.2); MEAN CORPUSCULAR VOLUME 92.6 fL (81-97); MEAN PLATELET VOLUME 8.6 fL (7.4-10.4); MONOCYTES # (AUTO) 0.32 x10^3/uL (0.2-0.8); MONOCYTES % (AUTO) 7 % (2-9); NEUTROPHILS # (AUTO) 2.13 x10^3/uL (1.8-6.8); NEUTROPHILS % (AUTO) 44 % (42-75); PLATELET COUNT 265 x10^3/uL (130-400); RED BLOOD COUNT 4.59 x10^6/uL (4.38-5.82); RED CELL DISTRIBUTION WIDTH 12.9 % (9.4-14.8)
[2019-08-13 14:17] LABS: ALANINE AMINOTRANSFERASE 40 U/L (12-78); ALBUMIN 3.7 g/dL (3.4-5.0); ANION GAP 10 mmol/L (5-15); CALCIUM 8.3 mg/dL (8.5-10.1); CHLORIDE 111 mmol/L (98-107); CREATININE 0.74 mg/dL (0.7-1.3)
[2019-08-13 14:19] LABS: ALKALINE PHOSPHATASE 116 U/L (45-117); BILIRUBIN,TOTAL 0.1 mg/dL (0.2-1.0); TOTAL PROTEIN 6.9 g/dL (6.4-8.2)
--- NOTE | 2019-08-13 14:30 | NUR ---
pt sleeping in hospital bed. resps even and unlabored. room remains secure.
--- NOTE | 2019-08-13 15:25 | NUR ---
pt sleeping in hospital bed. resps even and unlabored. room remains secure.
--- NOTE | 2019-08-13 16:23 | NUR ---
pt sleeping in hospital bed. resps even and unlabored. room remains secure.
--- NOTE | 2019-08-13 17:08 | NUR ---
PT DIDN'T LEAVE AFTER THIS RN ATTEMPTED TO DC X 2 TIMES. SECURITY PAGED. Patient given discharge instructions and they have confirmed that they understand the instructions. Patient ambulatory with steady gait.
== END 2019-08-13 17:09 | disposition home or self-care (01) ==
LOC: ED 14:12
DX: F10.129 Alcohol abuse with intoxication, unspecified (principal); I10 Essential (primary) hypertension; F20.9 Schizophrenia, unspecified; Y90.9 Presence of alcohol in blood, level not specified
CPT/HCPCS: 36415; 80053; 80307; 85025; 99283

== ENCOUNTER 2019-09-25 00:07 | Inpatient (IN) | payer MEDICAID ==
[~2019-09-25] VITALS: Ht 182.9 cm; Wt 53.7 kg
[2019-09-26] MEDS ORDERED: ONDANSETRON ODT 4 MG PO PRN (00:30)
[2019-09-26] MEDS ORDERED: LORazepam 1MG TABLET PO PRN ×3 (00:30→13:00)
[2019-09-26] MEDS ORDERED: BISACODYL 10 MG SUPP PR PRN (00:30)
[2019-09-26] MEDS ORDERED: DOCUSATE 100 MG CAPSULE PO PRN (00:30)
[2019-09-26] MEDS ORDERED: NICOTINE 21 MG/24 HR PATCH.TD24 TD SCH (00:30)
[2019-09-26] MEDS ORDERED: POLYETHYLENE GLYCOL 17 GM PACKET PO PRN (00:30)
[2019-09-26 01:00] VITALS: BP 154/90
[2019-09-26] MEDS: QUETIAPINE 100MG TABLET PO SCH ×3 (01:14→20:14)
[2019-09-26 07:00] VITALS: BP 135/89
[2019-09-26] MEDS: AMANTADINE 100 MG CAPSULE PO SCH ×2 (08:45→20:14)
[2019-09-26] MEDS: ACAMPROSATE 333 MG TABLET.DR PO SCH ×3 (08:45→20:13)
[2019-09-26] MEDS: APIXABAN 5 MG TABLET PO SCH ×2 (08:45→20:14)
[2019-09-26] MEDS: LITHIUM CARBONATE 150 MG CAPSULE PO SCH ×2 (08:46→20:14)
[2019-09-26] MEDS: AMLODIPINE 5 MG TABLET PO SCH (08:46)
[2019-09-26] MEDS ORDERED: LORazepam 0.5MG TABLET PO PRN (13:00)
[2019-09-26 19:12] VITALS: BP 150/91
[2019-09-26] MEDS: ACETAMINOPHEN 325 MG TABLET PO PRN (20:13)
[2019-09-26] MEDS: THIAMINE 100MG TABLET PO SCH (20:14)
[2019-09-27 05:57] LABS: ANION GAP 5 mmol/L (5-15); CALCIUM 9.7 mg/dL (8.5-10.1); CHLORIDE 109 mmol/L (98-107)
[2019-09-27 05:58] LABS: CREATININE 1.01 mg/dL (0.7-1.3)
[2019-09-27 07:20] VITALS: BP 111/71
[2019-09-27] MEDS: AMLODIPINE 5 MG TABLET PO SCH (08:56)
[2019-09-27] MEDS: ACAMPROSATE 333 MG TABLET.DR PO SCH ×3 (08:56→20:19)
[2019-09-27] MEDS: MULTIVITAMIN 1 TABLET PO SCH (08:56)
[2019-09-27] MEDS: APIXABAN 5 MG TABLET PO SCH ×2 (08:56→20:18)
[2019-09-27] MEDS: LITHIUM CARBONATE 150 MG CAPSULE PO SCH ×2 (08:56→20:18)
[2019-09-27] MEDS: AMANTADINE 100 MG CAPSULE PO SCH ×2 (08:57→20:18)
[2019-09-27] MEDS: NICOTINE 21 MG/24 HR PATCH.TD24 TD SCH (08:57)
[2019-09-27] MEDS: THIAMINE 100MG TABLET PO SCH ×2 (08:57→20:19)
[2019-09-27] MEDS: QUETIAPINE 100MG TABLET PO SCH ×2 (08:57→20:19)
[2019-09-27 19:15] VITALS: BP 110/67
[2019-09-28 07:27] VITALS: BP 110/70
[2019-09-28] MEDS: APIXABAN 5 MG TABLET PO SCH ×2 (08:51→20:28)
[2019-09-28] MEDS: LITHIUM CARBONATE 150 MG CAPSULE PO SCH ×2 (08:51→20:26)
[2019-09-28] MEDS: ACAMPROSATE 333 MG TABLET.DR PO SCH ×3 (08:51→20:26)
[2019-09-28] MEDS: NICOTINE 21 MG/24 HR PATCH.TD24 TD SCH (08:51)
[2019-09-28] MEDS: LORazepam 1MG TABLET PO PRN ×2 (08:52→20:28)
[2019-09-28] MEDS: AMLODIPINE 5 MG TABLET PO SCH (08:52)
[2019-09-28] MEDS: AMANTADINE 100 MG CAPSULE PO SCH ×2 (08:52→20:28)
[2019-09-28] MEDS: THIAMINE 100MG TABLET PO SCH ×2 (08:52→20:28)
[2019-09-28] MEDS: QUETIAPINE 100MG TABLET PO SCH ×2 (08:52→20:27)
[2019-09-28] MEDS: MULTIVITAMIN 1 TABLET PO SCH (08:52)
[2019-09-28 19:15] VITALS: BP 113/73
[2019-09-29 07:28] VITALS: BP 113/70
[2019-09-29] MEDS: ACAMPROSATE 333 MG TABLET.DR PO SCH ×3 (08:10→21:01)
[2019-09-29] MEDS: AMANTADINE 100 MG CAPSULE PO SCH ×2 (08:11→21:02)
[2019-09-29] MEDS: THIAMINE 100MG TABLET PO SCH ×2 (08:12→21:02)
[2019-09-29] MEDS: MULTIVITAMIN 1 TABLET PO SCH (08:12)
[2019-09-29] MEDS: AMLODIPINE 5 MG TABLET PO SCH (08:12)
[2019-09-29] MEDS: APIXABAN 5 MG TABLET PO SCH ×2 (08:14→21:03)
[2019-09-29] MEDS: LITHIUM CARBONATE 150 MG CAPSULE PO SCH ×2 (08:31→21:02)
[2019-09-29] MEDS: QUETIAPINE 100MG TABLET PO SCH ×2 (08:33→21:01)
[2019-09-29] MEDS: NICOTINE 21 MG/24 HR PATCH.TD24 TD SCH (09:00)
[2019-09-29] MEDS: LORazepam 1MG TABLET PO PRN ×2 (11:43→19:08)
[2019-09-29 19:49] VITALS: BP 111/69
[2019-09-30] MEDS: LORazepam 1MG TABLET PO PRN ×3 (02:31→22:01)
[2019-09-30] MEDS: ACETAMINOPHEN 325 MG TABLET PO PRN ×2 (02:31→20:26)
[2019-09-30 07:23] VITALS: BP 117/64
[2019-09-30] MEDS: ACAMPROSATE 333 MG TABLET.DR PO SCH ×3 (08:29→20:26)
[2019-09-30] MEDS: AMANTADINE 100 MG CAPSULE PO SCH ×2 (08:29→20:27)
[2019-09-30] MEDS: LITHIUM CARBONATE 150 MG CAPSULE PO SCH ×2 (08:29→20:28)
[2019-09-30] MEDS: THIAMINE 100MG TABLET PO SCH ×2 (08:29→20:27)
[2019-09-30] MEDS: APIXABAN 5 MG TABLET PO SCH ×2 (08:29→20:27)
[2019-09-30] MEDS: QUETIAPINE 100MG TABLET PO SCH ×2 (08:29→20:25)
[2019-09-30] MEDS: AMLODIPINE 5 MG TABLET PO SCH (08:29)
[2019-09-30] MEDS: NICOTINE 21 MG/24 HR PATCH.TD24 TD SCH (08:30)
[2019-09-30] MEDS: MULTIVITAMIN 1 TABLET PO SCH (08:35)
[2019-09-30] MEDS ORDERED: APIX5TAB PO (15:49)
[2019-09-30] MEDS ORDERED: MULT1TAB60 PO (15:49)
[2019-09-30] MEDS ORDERED: QUET100T PO ×2 (15:49)
[2019-09-30] MEDS ORDERED: AMLO-150 PO (15:49)
[2019-09-30] MEDS ORDERED: LITH150C PO (15:49)
[2019-09-30] MEDS ORDERED: NICO-487 TD (15:49)
[2019-09-30] MEDS ORDERED: AMAN100C7 PO (15:49)
[2019-09-30] MEDS ORDERED: ACAM333T7 PO (15:49)
[2019-09-30 19:58] VITALS: BP 129/84
[2019-10-01] MEDS ORDERED: OLANZAPINE 10 MG INJ IM ONE ×2 (00:33→01:00)
[2019-10-01 07:36] VITALS: BP 118/76
[2019-10-01] MEDS: LITHIUM CARBONATE 150 MG CAPSULE PO SCH (08:23)
[2019-10-01] MEDS: AMLODIPINE 5 MG TABLET PO SCH (08:23)
[2019-10-01] MEDS: THIAMINE 100MG TABLET PO SCH (08:23)
[2019-10-01] MEDS: AMANTADINE 100 MG CAPSULE PO SCH (08:23)
[2019-10-01] MEDS: APIXABAN 5 MG TABLET PO SCH (08:23)
[2019-10-01] MEDS: ACAMPROSATE 333 MG TABLET.DR PO SCH (08:23)
[2019-10-01] MEDS: MULTIVITAMIN 1 TABLET PO SCH (08:23)
[2019-10-01] MEDS: QUETIAPINE 100MG TABLET PO SCH (08:24)
[2019-10-01] MEDS: NICOTINE 21 MG/24 HR PATCH.TD24 TD SCH (08:24)
== END 2019-10-01 10:45 | disposition home or self-care (01) | DRG 750 ==
LOC: 3E 09-26 00:08
PROVIDERS: ADMIT Psychiatry & Neurology Psychosomatic Medicine; ATTEND Psychiatry & Neurology Psychosomatic Medicine
DX: F25.0 Schizoaffective disorder, bipolar type (principal); E87.2 Acidosis; R45.851 Suicidal ideations; F11.20 Opioid dependence, uncomplicated; F15.20 Other stimulant dependence, uncomplicated; F17.210 Nicotine dependence, cigarettes, uncomplicated; I10 Essential (primary) hypertension; F10.229 Alcohol dependence with intoxication, unspecified; Z86.711 Personal history of pulmonary embolism; Z88.0 Allergy status to penicillin
CPT/HCPCS: 36415; 71045; 80048; 80053; 80178; 80307; 81003; 84439; 84443; 85025; 93005; 99284

== ENCOUNTER 2019-09-25 11:20 | Emergency (ER) | payer MEDICAID ==
[~2019-09-25] VITALS: Ht 182.9 cm; Wt 83.6 kg
[2019-09-25 11:58] LABS: BASOPHILS # (AUTO) 0.06 x10^3/uL (0-0.1); BASOPHILS % (AUTO) 1 % (0-1); EOSINOPHILS % (AUTO) 6 % (1-7); LYMPHOCYTES # (AUTO) 2.79 x10^3/uL (1-3.4); LYMPHOCYTES % (AUTO) 42 % (22-44); MD NO; MEAN CORPUSCULAR HEMOGLOBIN 31.6 pg (27.5-34.5); MEAN CORPUSCULAR HGB CONC 33.9 g/dL (33.2-36.2); MEAN CORPUSCULAR VOLUME 93.1 fL (81-97); MEAN PLATELET VOLUME 8.4 fL (7.4-10.4); MONOCYTES # (AUTO) 0.57 x10^3/uL (0.2-0.8); MONOCYTES % (AUTO) 9 % (2-9); NEUTROPHILS # (AUTO) 2.85 x10^3/uL (1.8-6.8); NEUTROPHILS % (AUTO) 43 % (42-75); PLATELET COUNT 361 x10^3/uL (130-400); RED CELL DISTRIBUTION WIDTH 13.8 % (9.4-14.8)
[2019-09-25 12:09] LABS: ALANINE AMINOTRANSFERASE 31 U/L (12-78); ALBUMIN 3.6 g/dL (3.4-5.0); ANION GAP 8 mmol/L (5-15); CALCIUM 8.3 mg/dL (8.5-10.1); CHLORIDE 113 mmol/L (98-107); CREATININE 0.81 mg/dL (0.7-1.3)
[2019-09-25 12:15] LABS: ALKALINE PHOSPHATASE 148 U/L (45-117); SALICYLATE LEVEL 4.4 mg/dL (2.8-20.0); TOTAL PROTEIN 7.2 g/dL (6.4-8.2)
--- NOTE | 2019-09-25 12:15 | NUR ---
RECEIVED PATIENT, WHO IS AMBULATORY AND STEADY ON HIS FEET, IN ROOM 1. ALL BELONGINGS EXCEPT FOR UNDERWEAR AND SOCKS REMOVED FROM PATIENT AND LOCKED IN SECURED LOCKER IN 4 BAGS; 2 PLASTIC PATIENT BELONGINGS BAGS AND 2 OF THE PATIENT'S OWN BAGS, ONE BACKPACK AND ONE DUFFLE BAG. URINE OBTAINED AND WALKED TO LAB. BLOOD OBTAINED. GARAGE DOORS DOWN FOR PATIENT SAFETY, SUICIDE PRECAUTIONS IN PLACE. SITTER IN THE HALLWAY. CURTAIN OPEN FOR PATIENT VIEW. PT RESTING AT THIS TIME. DR. BLANCA SAW PATIENT.
[2019-09-25 12:19] LABS: BILIRUBIN,TOTAL < 0.1 mg/dL (0.2-1.0)
[2019-09-25 12:30] LABS: MICROSCOPIC NOT IND
[2019-09-25 12:41] LABS: AMPHETAMINE SCREEN, URINE Negative (Negative); BARBITURATE SCREEN, URINE Negative (Negative); BENZODIAZEPINE SCREEN, URINE Negative (Negative); CANNABINOID SCREEN, URINE Negative (Negative); COCAINE SCREEN, URINE Negative (Negative); METHADONE SCREEN, URINE Negative (Negative); OPIATE SCREEN, URINE Negative (Negative)
[2019-09-25] MEDS ORDERED: IBUPROFEN 200 MG TABLET PO ONE (17:30)
[2019-09-25] MEDS ORDERED: IBUPROFEN 200 MG TABLET ONE (17:33)
--- NOTE | 2019-09-25 17:36 | NUR ---
AWAITING PATIENT BE BE SOBER AND BELOW 0.08 ON BREATHYLIZER. PT WAS COMPLAINING OF A HEADACHE. DR. BLANCA NOTIFIED AND 400MG IBUPROFEN ORDERED AND GIVEN. DR. BLANCA SPOKE WITH PATIENT WHO STATES THAT HE STILL FEELS SUICIDAL. DR. BLANCA PLANS TO PUT ON LEGAL HOLD IF PATIENT REMAINS SUICIDAL WHEN SOBER. PT REMAINS UNDER CONSTANT SUPERVISION OF SITTER AND REMAINS SAFE. PATIENT STATES HIS PLAN IS TO JUMP OFF OF A BUILDING. DINNER TRAY ORDERED FOR PATIENT.
--- NOTE | 2019-09-25 18:54 | NUR ---
Bedside report from Alejandro CHAPMAN, pt care transferred at this time. Pt resting in gurney, under blankets, NAD, RESP even and unlabored, P/W/D, WCTM.
--- NOTE | 2019-09-25 18:57 | NUR ---
SBAR HAND-OFF REPORT GIVEN TO RNs RUSS.
[2019-09-25 19:14] VITALS: BP 134/82
--- NOTE | 2019-09-25 19:20 | NUR ---
pt given ice water for comfort, NAD, RESP WNL, VSS, denies additional needs at this time. P/W/D, WCTM.
--- NOTE | 2019-09-25 20:15 | NUR ---
pt ambulated to restroom with a smooth and steady gait, MAEx4, NAD, RESP WNL, P/W/D, denies additional needs at this time. Lights dimmed for pt comfort, WCTM.
--- NOTE | 2019-09-25 21:23 | NUR ---
pt resting in gurney, blanket over head, NAD, RESP WNL, lights off for comfort. P/W/D, sitter in line of sight, WCTM.
--- NOTE | 2019-09-25 22:02 | NUR ---
pt resting in gurney, rocking back and forth, given extra warm blankets for comfort, breathalyzer 0.00, NAD, RESP WNL, P/W/D, WCTM. sitter in line of sight
--- NOTE | 2019-09-25 22:59 | NUR ---
pt resting in gurney, NAD, RESP WNL, P/W/D, eyes closed. sitter in line of sit. WCTM
--- NOTE | 2019-09-25 23:05 | NUR ---
TP: PACKET FAXED TO [facility]. ADRIEN CHAPMAN WILL LOOK AT PACKET AND LET US KNOW IF THEY WILL ACCEPT HIM
--- NOTE | 2019-09-25 23:49 | NUR ---
TP: PT ACCEPTED TO [facility]. RN TO GIVE REPORT TO MATTHEW CHAPMAN
--- NOTE | 2019-09-26 00:11 | NUR ---
REPORT GIVEN TO MATTHEW CHAPMAN. PT WHEELED TO [facility] WITH BELONGINGS BAGS. NAD, RESP WNL, P/W/D.
== END 2019-09-26 08:36 | disposition other institution (70) ==
LOC: ED 14:46
DX: F33.9 Major depressive disorder, recurrent, unspecified (principal); R45.851 Suicidal ideations; F10.120 Alcohol abuse with intoxication, uncomplicated; F20.9 Schizophrenia, unspecified; I10 Essential (primary) hypertension
CPT/HCPCS: 36415; 80053; 80307; 81003; 84443; 85025; 99284

== ENCOUNTER 2019-10-08 04:14 | Emergency (ER) | payer MEDICAID ==
[~2019-10-08] VITALS: Ht 185.4 cm; Wt 77.9 kg
[~2019-10-08 04:14] MED LIST changes: +ACAM333T7 PO; +MULT1TAB60 PO
--- NOTE | 2019-10-08 04:37 | NUR ---
pt ambulated back to room with a smooth and steady gait, given warm blanket for comfort, call light within reach, sitter requested, NAD, RESP WNL, VSS, P/W/D, 3/3 belongings bags stored in locker. pt denies additional needs at this time, WCTM.
--- NOTE | 2019-10-08 04:43 | NUR ---
Pt has a history of SI and ETOH abuse, states that he "was too drunk to check into [facility]." When asked about current SI pt states he "plans to jump off the tallest parking garage." Pt informed RN that he has no meds. WCTM.
--- NOTE | 2019-10-08 05:30 | NUR ---
pt resting in gurney, eyes closed, resp heard and WNL on monitor, NAD, VSS, P/W/D, WCTM. waiting for pt to metabolize then recheck.
--- NOTE | 2019-10-08 05:34 | NUR ---
ED SI DIET tray ordered.
--- NOTE | 2019-10-08 05:48 | NUR ---
RN attempted to perform med rec, pt refusing to answer regarding a number of the medications.
--- NOTE | 2019-10-08 06:34 | NUR ---
pt resting in gurney, NAD, RESP WNL, skin color WNL warm and dry, givne additional warm blanket for comfort. Denies additional needs at this time. WCTM.
--- NOTE | 2019-10-08 07:03 | NUR ---
Report to Viola CHAPMAN, pt care transferred at this time.
--- NOTE | 2019-10-08 07:09 | NUR ---
RECEIVED REPORT FROM YUDELKA PERDOMO RN. PT RESTING ON [facility]. NADN. LOVE REMAINS AT BEDSIDE.
--- NOTE | 2019-10-08 07:27 | NUR ---
PT RESTING ON JELANI. NADN. MILLIGANTER REMAINS AT BEDSIDE.
--- NOTE | 2019-10-08 07:41 | NUR ---
PT AWARE OF NEED FOR UA. SI REASSESSMENT COMPLETE. SITTER REMAINS AT BEDSIDE.
--- NOTE | 2019-10-08 08:22 | NUR ---
PT PROVIDED W/ BREAKFAST TRAY. PT AWARE OF NEED FOR UA SAMPLE. SITTER REMAINS AT BEDSIDE.
[2019-10-08 08:24] VITALS: BP 117/71
--- NOTE | 2019-10-08 08:35 | NUR ---
UA COLLECTED, LABELED, AND WALKED TO LAB.
--- NOTE | 2019-10-08 09:32 | NUR ---
REPORT FROM ARBEN
[2019-10-08 09:38] LABS: AMPHETAMINE SCREEN, URINE Positive (Negative); BARBITURATE SCREEN, URINE Negative (Negative); BENZODIAZEPINE SCREEN, URINE Negative (Negative); CANNABINOID SCREEN, URINE Negative (Negative); COCAINE SCREEN, URINE Negative (Negative); METHADONE SCREEN, URINE Negative (Negative); OPIATE SCREEN, URINE Negative (Negative)
[2019-10-08 10:30] LABS: BASOPHILS # (AUTO) 0.05 x10^3/uL (0-0.1); BASOPHILS % (AUTO) 1 % (0-1); EOSINOPHILS # (AUTO) 0.32 x10^3/uL (0-0.4); EOSINOPHILS % (AUTO) 8 % (1-7); LYMPHOCYTES # (AUTO) 1.47 x10^3/uL (1-3.4); LYMPHOCYTES % (AUTO) 37 % (22-44); MD NO; MEAN CORPUSCULAR HEMOGLOBIN 31.4 pg (27.5-34.5); MEAN CORPUSCULAR HGB CONC 34.1 g/dL (33.2-36.2); MEAN CORPUSCULAR VOLUME 91.8 fL (81-97); MEAN PLATELET VOLUME 9.2 fL (7.4-10.4); MONOCYTES # (AUTO) 0.34 x10^3/uL (0.2-0.8); MONOCYTES % (AUTO) 9 % (2-9); NEUTROPHILS # (AUTO) 1.77 x10^3/uL (1.8-6.8); NEUTROPHILS % (AUTO) 45 % (42-75); PLATELET COUNT 245 x10^3/uL (130-400); RED CELL DISTRIBUTION WIDTH 13.6 % (9.4-14.8)
--- NOTE | 2019-10-08 10:30 | NUR ---
PT SLEEPING, SITTER PRESENT
[2019-10-08 10:36] LABS: ALANINE AMINOTRANSFERASE 47 U/L (12-78); ALBUMIN 3.6 g/dL (3.4-5.0); ANION GAP 7 mmol/L (5-15); CALCIUM 8.6 mg/dL (8.5-10.1); CHLORIDE 113 mmol/L (98-107); CREATININE 0.86 mg/dL (0.7-1.3); SALICYLATE LEVEL 3.2 mg/dL (2.8-20.0)
[2019-10-08 10:38] LABS: ALKALINE PHOSPHATASE 136 U/L (45-117); BILIRUBIN,TOTAL 0.3 mg/dL (0.2-1.0); TOTAL PROTEIN 6.9 g/dL (6.4-8.2)
--- NOTE | 2019-10-08 11:42 | NUR ---
SITTER PRESENT, PT SLEEPING
--- NOTE | 2019-10-08 12:16 | NUR ---
VLADIMIR ALEMAN AT BEDSIDE
[2019-10-08] MEDS ORDERED: QUETIAPINE 25MG TABLET PO ONE (12:30)
[2019-10-08] MEDS ORDERED: NICOTINE 14MG/24 HR PATCH.TD24 TD ONE (12:30)
[2019-10-08] MEDS ORDERED: BENZTROPINE 1 MG TABLET PO ONE (12:30)
--- NOTE | 2019-10-08 12:30 | NUR ---
GIVEN MEAL TRAY
[2019-10-08] MEDS ORDERED: NICOTINE 21 MG/24 HR PATCH.TD24 ONE (12:35)
[2019-10-08] MEDS ORDERED: QUETIAPINE 25MG TABLET ONE (12:35)
[2019-10-08] MEDS ORDERED: BENZTROPINE 1 MG TABLET ONE (12:35)
[2019-10-08] MEDS ORDERED: NICOTINE 14MG/24 HR PATCH.TD24 ONE (12:36)
--- NOTE | 2019-10-08 12:44 | NUR ---
MEDICATED PER ORDERS.
--- NOTE | 2019-10-08 13:59 | NUR ---
REPORT TO [facility]
== END 2019-10-08 14:21 ==
LOC: ED 04:47
DX: F10.229 Alcohol dependence with intoxication, unspecified (principal); F15.20 Other stimulant dependence, uncomplicated; R45.851 Suicidal ideations; G40.909 Epilepsy, unspecified, not intractable, without status epilepticus; I10 Essential (primary) hypertension; F17.210 Nicotine dependence, cigarettes, uncomplicated; Z86.718 Personal history of other venous thrombosis and embolism; Z72.9 Problem related to lifestyle, unspecified; Y90.0 Blood alcohol level of less than 20 mg/100 ml
CPT/HCPCS: 36415; 80053; 80307; 85025; 99285

== ENCOUNTER 2019-10-24 20:07 | Emergency (ER) | payer MEDICAID ==
[~2019-10-24] VITALS: Ht 182.9 cm; Wt 80.0 kg
[~2019-10-24 20:07] MED LIST changes: +AMLO10TA8 PO; +MULT-449 PO; -MULT1TAB60 PO; +PALI3TAB11 PO
--- NOTE | 2019-10-24 20:27 | NUR ---
AT BEDSIDE FOR ASSESSMENT
--- NOTE | 2019-10-24 20:29 | NUR ---
PT AMBULATORY W/STEADY GAIT NO ASSIST REQ, URINE SENT TO LAB. TO DC PT AT REQ OF PT. RN UPDATED MD ON PT COMPLAINTS OF WANTING TO KILL HIMSELF. MD AWARE NO ORDERS AT THIS TIME.
== END 2019-10-24 20:43 | disposition home or self-care (01) ==
LOC: ED 20:32
DX: F15.159 Other stimulant abuse with stimulant-induced psychotic disorder, unspecified (principal); F20.9 Schizophrenia, unspecified; R45.851 Suicidal ideations; F32.9 Major depressive disorder, single episode, unspecified; I10 Essential (primary) hypertension; F17.200 Nicotine dependence, unspecified, uncomplicated; G40.909 Epilepsy, unspecified, not intractable, without status epilepticus; Z86.718 Personal history of other venous thrombosis and embolism
CPT/HCPCS: 99283

== ENCOUNTER 2019-11-13 15:15 | Emergency (ER) | payer MEDICAID ==
[~2019-11-13] VITALS: Ht 182.9 cm; Wt 80.1 kg
[2019-11-13 15:19] VITALS: BP 141/87
[2019-11-13] MEDS ORDERED: ONDANSETRON ODT 4 MG PO ONE (16:00)
[2019-11-13] MEDS ORDERED: ONDANSETRON ODT 4 MG ONE (16:05)
[2019-11-13 16:22] LABS: BASOPHILS # (AUTO) 0.01 x10^3/uL (0-0.1); BASOPHILS % (AUTO) 0 % (0-1); EOSINOPHILS # (AUTO) 0.07 x10^3/uL (0-0.4); EOSINOPHILS % (AUTO) 1 % (1-7); LYMPHOCYTES # (AUTO) 0.72 x10^3/uL (1-3.4); LYMPHOCYTES % (AUTO) 9 % (22-44); MD NO; MEAN CORPUSCULAR HEMOGLOBIN 30.9 pg (27.5-34.5); MEAN CORPUSCULAR HGB CONC 33.9 g/dL (33.2-36.2); MEAN PLATELET VOLUME 8.8 fL (7.4-10.4); MONOCYTES # (AUTO) 0.78 x10^3/uL (0.2-0.8); MONOCYTES % (AUTO) 10 % (2-9); NEUTROPHILS # (AUTO) 6.53 x10^3/uL (1.8-6.8); NEUTROPHILS % (AUTO) 80 % (42-75); PLATELET COUNT 231 x10^3/uL (130-400); RED BLOOD COUNT 4.76 x10^6/uL (4.38-5.82); RED CELL DISTRIBUTION WIDTH 13.1 % (9.4-14.8)
[2019-11-13 16:24] LABS: ALANINE AMINOTRANSFERASE 16 U/L (12-78); ANION GAP 7 mmol/L (5-15); CALCIUM 8.5 mg/dL (8.5-10.1); CHLORIDE 111 mmol/L (98-107)
[2019-11-13 16:27] LABS: ALKALINE PHOSPHATASE 106 U/L (45-117); BILIRUBIN,TOTAL 0.3 mg/dL (0.2-1.0); TOTAL PROTEIN 6.3 g/dL (6.4-8.2)
[2019-11-13] MEDS ORDERED: POTASSIUM CHLORIDE 20 MEQ TAB.ER.PRT ONE ×2 (17:00→17:05)
[2019-11-13] MEDS ORDERED: POTASSIUM CHLORIDE 20 MEQ TAB.ER.PRT PO ONE (17:00)
--- NOTE | 2019-11-13 17:19 | NUR ---
DC EDUCATION PROVIDED, PT DEMONSTRATES UNDERSTANDING. PT AMBULATED STEADILY TO DC WITH RN
== END 2019-11-13 17:21 | disposition home or self-care (01) ==
LOC: ED 16:25
DX: E87.6 Hypokalemia (principal); R10.84 Generalized abdominal pain; R19.7 Diarrhea, unspecified; I10 Essential (primary) hypertension
CPT/HCPCS: 36415; 80053; 83690; 85025; 99283; Q0162

== ENCOUNTER 2019-11-22 19:46 | Emergency (ER) | payer MEDICAID ==
[~2019-11-22] VITALS: Ht 182.9 cm; Wt 82.9 kg
--- NOTE | 2019-11-22 19:54 | NUR ---
Pt presents w/ angioedema and "no breath sounds" per [facility]. Worked up for allergic rx in field. No hives or swelling on face or neck. Given 50 mg benadryl iv, 0.3 mg im epinephrine and duonebx3 in field. Tolerating own airway and secretions. Denies any food allergies but "i ate a salad, i dont normally eat, this afternoon." Iv patent. All monitoring applied. Mild swelling to tongue noted. ETOH odor noted and pt reports heavy drinking. Slurred speech, but neuro otherwise intact. Wheezing noted in all rasmussen. Pt intermittently sleeping, but responds to verbal stimuli. Md at bedside for assessment.
--- NOTE | 2019-11-22 19:57 | NUR ---
RA trial initiated per ERMD verbal order.
--- NOTE | 2019-11-22 20:11 | NUR ---
Pt moved to 19 from Tr04. aware of successful RA trial.
--- NOTE | 2019-11-22 20:12 | NUR ---
Pt report to Bambi jeronimo.
--- NOTE | 2019-11-22 20:13 | NUR ---
REPORT FROM CARMELLA CHAPMAN. PT SLEEPING. EVEN RISE AND FALL OF CHEST OBSERVED. PT RESPONDS TO VERBAL STIMULI.VSS. PT AWARE THAT UA IS NEEDED. CALL LIGHT IN REACH
[2019-11-22 20:16] LABS: BASOPHILS # (AUTO) 0.04 x10^3/uL (0-0.1); BASOPHILS % (AUTO) 1 % (0-1); EOSINOPHILS # (AUTO) 0.22 x10^3/uL (0-0.4); EOSINOPHILS % (AUTO) 3 % (1-7); LYMPHOCYTES # (AUTO) 3.56 x10^3/uL (1-3.4); LYMPHOCYTES % (AUTO) 43 % (22-44); MD NO; MEAN CORPUSCULAR HEMOGLOBIN 30.8 pg (27.5-34.5); MEAN CORPUSCULAR HGB CONC 33.7 g/dL (33.2-36.2); MEAN CORPUSCULAR VOLUME 91.2 fL (81-97); MEAN PLATELET VOLUME 7.8 fL (7.4-10.4); MONOCYTES # (AUTO) 0.68 x10^3/uL (0.2-0.8); MONOCYTES % (AUTO) 8 % (2-9); NEUTROPHILS # (AUTO) 3.79 x10^3/uL (1.8-6.8); NEUTROPHILS % (AUTO) 46 % (42-75); PLATELET COUNT 376 x10^3/uL (130-400); RED BLOOD COUNT 4.73 x10^6/uL (4.38-5.82)
[2019-11-22 20:26] LABS: ALANINE AMINOTRANSFERASE 14 U/L (12-78); ALBUMIN 3.1 g/dL (3.4-5.0); ANION GAP 5 mmol/L (5-15); CALCIUM 8.4 mg/dL (8.5-10.1); CHLORIDE 116 mmol/L (98-107)
[2019-11-22 20:29] LABS: ALKALINE PHOSPHATASE 112 U/L (45-117); BILIRUBIN,TOTAL 0.1 mg/dL (0.2-1.0); CREATININE 0.83 mg/dL (0.7-1.3); TOTAL PROTEIN 6.3 g/dL (6.4-8.2)
--- NOTE | 2019-11-22 21:00 | NUR ---
PT PLACED ON 2 L O2 BECASE O2 LEVELS DROPED. PULSE OX PLACED ON OTHER HAND AND O2 LEVELS IMPROVED. PT ABLE TO FOLLOW COMMANDS. OTER VSS. WILL CONTINUE TO MONITOR.
--- NOTE | 2019-11-22 22:19 | NUR ---
PT SLEEPING EVEN RISE AND FALL OF CHEST OBSERVED. VSS. CALL LIGHT IN REACH
--- NOTE | 2019-11-22 22:45 | NUR ---
Patient given discharge instructions and they have confirmed that they understand the instructions. Patient ambulatory with steady gait. Patient given cab voucher to [facility]
[2019-11-22 22:46] VITALS: BP 117/68
== END 2019-11-22 22:48 | disposition home or self-care (01) ==
LOC: ED 22:46
DX: F10.120 Alcohol abuse with intoxication, uncomplicated (principal); R22.0 Localized swelling, mass and lump, head; Z72.9 Problem related to lifestyle, unspecified; R94.31 Abnormal electrocardiogram [ECG] [EKG]; Y90.9 Presence of alcohol in blood, level not specified
CPT/HCPCS: 36415; 80053; 80307; 85025; 93005; 99284

== ENCOUNTER 2020-01-26 13:56 | Emergency (ER) | payer MEDICAID ==
[~2020-01-26] VITALS: Ht 185.4 cm; Wt 100.0 kg
[2020-01-26 14:37] LABS: BASOPHILS # (AUTO) 0.07 x10^3/uL (0-0.1); BASOPHILS % (AUTO) 1 % (0-1); EOSINOPHILS # (AUTO) 0.38 x10^3/uL (0-0.4); EOSINOPHILS % (AUTO) 7 % (1-7); LYMPHOCYTES # (AUTO) 2.88 x10^3/uL (1-3.4); LYMPHOCYTES % (AUTO) 52 % (22-44); MD NO; MEAN CORPUSCULAR HEMOGLOBIN 30.8 pg (27.5-34.5); MEAN CORPUSCULAR HGB CONC 33.1 g/dL (33.2-36.2); MEAN CORPUSCULAR VOLUME 93.1 fL (81-97); MEAN PLATELET VOLUME 7.8 fL (7.4-10.4); MONOCYTES # (AUTO) 0.37 x10^3/uL (0.2-0.8); MONOCYTES % (AUTO) 7 % (2-9); NEUTROPHILS # (AUTO) 1.81 x10^3/uL (1.8-6.8); NEUTROPHILS % (AUTO) 33 % (42-75); PLATELET COUNT 269 x10^3/uL (130-400); RED CELL DISTRIBUTION WIDTH 14.5 % (9.4-14.8)
[2020-01-26 14:43] LABS: ANION GAP 8 mmol/L (5-15); CALCIUM 8.3 mg/dL (8.5-10.1); CHLORIDE 115 mmol/L (98-107); CREATININE 0.86 mg/dL (0.7-1.3)
[2020-01-26 14:44] LABS: SALICYLATE LEVEL 4.7 mg/dL (2.8-20.0)
--- NOTE | 2020-01-26 15:08 | NUR ---
THIS IS A 39 YR OLD MALE HERE FOR THOUGHTS OF SUICIDE. PT PRESENTED INTOXICATED AND SOBBING. PT HAS PLAN TO JUMP OFF A PARKING GARAGE. ROOM SECURE, PT BELONGINGS CONSISTING OF 2 DUFFLE BAGS AND ONE HOSPITAL BELONGINGS BAG PLACED IN LOCKER.
--- NOTE | 2020-01-26 15:33 | NUR ---
PT RESTING IN ROOM. ROOM IS SECURED AT THIS TIME. WARM BLANKETS OFFERED.
--- NOTE | 2020-01-26 16:39 | NUR ---
PT RESTING IN ROOM AT THIS TIME. VISIBLE CHEST RISE AND FALL OBSERVED FROM DOOR. ROOM IS SECURE.
--- NOTE | 2020-01-26 18:22 | NUR ---
PT RESTING COMFORTABLY IN BED. EQUAL CHEST RISE AND FALL OBSERVED FROM DOOR. MEAL TRAY ORDERED.
[2020-01-26 18:55] LABS: AMPHETAMINE SCREEN, URINE Positive (Negative); BARBITURATE SCREEN, URINE Negative (Negative); BENZODIAZEPINE SCREEN, URINE Negative (Negative); CANNABINOID SCREEN, URINE Negative (Negative); COCAINE SCREEN, URINE Negative (Negative); METHADONE SCREEN, URINE Negative (Negative); OPIATE SCREEN, URINE Negative (Negative)
--- NOTE | 2020-01-26 19:13 | NUR ---
PT ROOM FOUND EMPTY. SEARCH OF ER FOUND PT IN BATHROOM AT SINK DRINKING WATER. PT GIVEN 2 WATER BOTTLES AND QUICKLY CONSUMED. PT REQUESTING MOR WATER. PT ASSURED HIS HYDRATION NEEDS WOULD BE ADDRESSED IN A SAFER MANNER. PT REASSURED THAT THIS RN WILL CHECK ON HIM REGULARLY TO PROVIDE WATER. ZHANEER IS NOW IN HALLWAY.
--- NOTE | 2020-01-26 20:39 | NUR ---
PT RESTING IN BED WITH SITTER A DOOR, PT ROOM SI SECURE. PT DENIED ANY WANTS OR NEEDS AT THIS TIME. RN WILL CONTINUE TO MONITOR PT
--- NOTE | 2020-01-27 00:55 | NUR ---
PT RESTING IN BED WITH SITTER A DOOR, PT ROOM SI SECURE. PT DENIED ANY WANTS OR NEEDS AT THIS TIME. RN WILL CONTINUE TO MONITOR. PT BAL 0.078
[2020-01-27] MEDS ORDERED: LORazepam 1MG TABLET PO ONE (01:30)
[2020-01-27] MEDS ORDERED: LORazepam 1MG TABLET ONE (02:03)
--- NOTE | 2020-01-27 02:09 | NUR ---
pt medicated per emar
--- NOTE | 2020-01-27 06:53 | NUR ---
BEDSIDE REPORT RECEIVED FROM PARAM JHA RN.
--- NOTE | 2020-01-27 07:00 | NUR ---
PT RESTING IN BED WITH EYES CLOSED AND SITTER A DOOR, PT ROOM SI SECURE. PT DENIED ANY WANTS OR NEEDS AT THIS TIME. COMFORT MEASURES PROVIDED. WILL CONTINUE TO MONITOR PT.
--- NOTE | 2020-01-27 08:05 | NUR ---
PT RESTING COMFORTABLY IN BED WITH EYES CLOSED AND SITTER A DOOR, PT ROOM SI SECURE. PT DENIED ANY WANTS OR NEEDS AT THIS TIME. COMFORT MEASURES PROVIDED. WILL CONTINUE TO MONITOR PT.
[2020-01-27 08:35] VITALS: BP 149/90
--- NOTE | 2020-01-27 09:05 | NUR ---
PT RESTING COMFORTABLY, EATING BREAKFAST AND SITTER A DOOR, PT ROOM SI SECURE. PT DENIED ANY WANTS OR NEEDS AT THIS TIME. COMFORT MEASURES PROVIDED. WILL CONTINUE TO MONITOR PT.
--- NOTE | 2020-01-27 10:02 | NUR ---
PT RESTING COMFORTABLY WITH EYES CLOSED ON BED, SITTER A DOOR, PT ROOM SI SECURE. PT DENIED ANY WANTS OR NEEDS AT THIS TIME. COMFORT MEASURES PROVIDED. WILL CONTINUE TO MONITOR PT.
--- NOTE | 2020-01-27 10:07 | NUR ---
MANAGER MINING: REFER TO [facility]
--- NOTE | 2020-01-27 10:48 | NUR ---
Note norris in ED - 01/27/20 at 1049 by AWILDA PT RESTING COMFORTABLY WITH EYES CLOSED ON BED, SITTER A DOOR, PT ROOM SI SECURE. PT DENIED ANY WANTS OR NEEDS AT THIS TIME. COMFORT MEASURES PROVIDED. WILL CONTINUE TO MONITOR PT.
--- NOTE | 2020-01-27 11:02 | NUR ---
REPORT GIVEN TO [facility].
== END 2020-01-27 13:59 ==
LOC: ED 15:45
DX: R45.851 Suicidal ideations (principal); F10.120 Alcohol abuse with intoxication, uncomplicated; I10 Essential (primary) hypertension; F20.9 Schizophrenia, unspecified; G40.909 Epilepsy, unspecified, not intractable, without status epilepticus; Y90.9 Presence of alcohol in blood, level not specified; F17.200 Nicotine dependence, unspecified, uncomplicated; Z86.73 Personal history of transient ischemic attack (TIA), and cerebral infarction without residual deficits
CPT/HCPCS: 36415; 80048; 80307; 82040; 85025; 99285

== ENCOUNTER 2020-01-27 10:42 | Inpatient (IN) | payer MEDICAID ==
[~2020-01-27] VITALS: Ht 182.9 cm; Wt 100.0 kg
[2020-01-27] MEDS ORDERED: BISACODYL 10 MG SUPP PR PRN (11:30)
[2020-01-27] MEDS ORDERED: DOCUSATE 100 MG CAPSULE PO PRN (11:30)
[2020-01-27] MEDS ORDERED: POLYETHYLENE GLYCOL 17 GM PACKET PO PRN (11:30)
[2020-01-27] MEDS ORDERED: ONDANSETRON ODT 4 MG PO PRN (11:30)
[2020-01-27] MEDS ORDERED: ACETAMINOPHEN 325 MG TABLET PO PRN (11:30)
[2020-01-27] MEDS ORDERED: PLEASE ENTER HEIGHT AND WEIGHT MC SCH (12:00)
[2020-01-27 15:13] VITALS: BP 149/103
[2020-01-27] MEDS ORDERED: LORazepam 1MG TABLET PO PRN (16:00)
[2020-01-27] MEDS: LORazepam 1MG TABLET PO SCH ×2 (16:29→20:07)
[2020-01-27] MEDS: ACAMPROSATE 333 MG TABLET.DR PO SCH ×2 (16:30→20:07)
[2020-01-27] MEDS ORDERED: ALUMINUM/MAG/SIMETHICONE 30 ML UDC PO PRN (18:00)
[2020-01-27 18:45] LABS: MICROSCOPIC NOT IND
[2020-01-27 19:58] VITALS: BP 137/48
[2020-01-27] MEDS: PANTOPRAZOLE 40MG TABLET PO SCH (20:07)
[2020-01-27] MEDS: APIXABAN 5 MG TABLET PO SCH (20:07)
[2020-01-27] MEDS: AMANTADINE 100 MG CAPSULE PO SCH (20:07)
[2020-01-27] MEDS: LITHIUM CARBONATE 150 MG CAPSULE PO SCH (20:15)
[2020-01-28] MEDS: PANTOPRAZOLE 40MG TABLET PO SCH ×2 (06:17→16:18)
[2020-01-28 06:18] LABS: BASOPHILS # (AUTO) 0.03 x10^3/uL (0-0.1); BASOPHILS % (AUTO) 1 % (0-1); EOSINOPHILS # (AUTO) 0.39 x10^3/uL (0-0.4); EOSINOPHILS % (AUTO) 7 % (1-7); LYMPHOCYTES # (AUTO) 1.59 x10^3/uL (1-3.4); LYMPHOCYTES % (AUTO) 27 % (22-44); MD NO; MEAN CORPUSCULAR HEMOGLOBIN 30.8 pg (27.5-34.5); MEAN CORPUSCULAR HGB CONC 33.1 g/dL (33.2-36.2); MEAN PLATELET VOLUME 8.2 fL (7.4-10.4); MONOCYTES # (AUTO) 0.57 x10^3/uL (0.2-0.8); MONOCYTES % (AUTO) 10 % (2-9); NEUTROPHILS # (AUTO) 3.28 x10^3/uL (1.8-6.8); NEUTROPHILS % (AUTO) 56 % (42-75); PLATELET COUNT 217 x10^3/uL (130-400); RED BLOOD COUNT 5.51 x10^6/uL (4.38-5.82); RED CELL DISTRIBUTION WIDTH 14.1 % (9.4-14.8)
[2020-01-28 06:23] LABS: ALBUMIN 3.5 g/dL (3.4-5.0); BILIRUBIN, DIRECT 0.2 mg/dL (0.1-0.2)
[2020-01-28 06:33] LABS: BILIRUBIN,INDIRECT 0.6 mg/dL (0.0-2.0); BILIRUBIN,TOTAL 0.8 mg/dL (0.2-1.0); CHOL/HDL RATIO 2.1; T4 (THYROXINE) 4.8 mcg/dL (4.5-12.1)
[2020-01-28 07:27] VITALS: BP 139/91
[2020-01-28 07:55] LABS: ANION GAP 9 mmol/L (5-15); CALCIUM 9.6 mg/dL (8.5-10.1); CHLORIDE 108 mmol/L (98-107); CREATININE 0.97 mg/dL (0.7-1.3)
[2020-01-28] MEDS: ACAMPROSATE 333 MG TABLET.DR PO SCH ×3 (09:01→19:43)
[2020-01-28] MEDS: NICOTINE 21 MG/24 HR PATCH.TD24 TD SCH (09:01)
[2020-01-28] MEDS: PALIPERIDONE 3 MG TAB.ER.24 PO SCH (09:02)
[2020-01-28] MEDS: LITHIUM CARBONATE 150 MG CAPSULE PO SCH ×2 (09:02→19:44)
[2020-01-28] MEDS: AMLODIPINE 10 MG TAB PO SCH (09:02)
[2020-01-28] MEDS: AMANTADINE 100 MG CAPSULE PO SCH ×2 (09:02→19:44)
[2020-01-28] MEDS: THIAMINE 100MG TABLET PO SCH (09:02)
[2020-01-28] MEDS: APIXABAN 5 MG TABLET PO SCH ×2 (09:02→19:44)
[2020-01-28] MEDS: LORazepam 1MG TABLET PO SCH ×3 (09:02→19:43)
[2020-01-28] MEDS: MULTIVITAMIN 1 TABLET PO SCH (09:02)
[2020-01-28] MEDS: FOLIC ACID 1 MG TABLET PO SCH (09:02)
[2020-01-28 19:18] VITALS: BP 122/83
[2020-01-29] MEDS: PANTOPRAZOLE 40MG TABLET PO SCH ×2 (06:09→16:25)
[2020-01-29 07:47] VITALS: BP 129/83
[2020-01-29] MEDS: MULTIVITAMIN 1 TABLET PO SCH (08:28)
[2020-01-29] MEDS: LITHIUM CARBONATE 150 MG CAPSULE PO SCH ×2 (08:28→20:03)
[2020-01-29] MEDS: PALIPERIDONE 3 MG TAB.ER.24 PO SCH (08:28)
[2020-01-29] MEDS: ACAMPROSATE 333 MG TABLET.DR PO SCH ×3 (08:29→20:02)
[2020-01-29] MEDS: THIAMINE 100MG TABLET PO SCH (08:29)
[2020-01-29] MEDS: APIXABAN 5 MG TABLET PO SCH ×2 (08:29→20:03)
[2020-01-29] MEDS: NICOTINE 21 MG/24 HR PATCH.TD24 TD SCH (08:29)
[2020-01-29] MEDS: FOLIC ACID 1 MG TABLET PO SCH (08:29)
[2020-01-29] MEDS: AMANTADINE 100 MG CAPSULE PO SCH ×2 (08:29→20:03)
[2020-01-29] MEDS: AMLODIPINE 10 MG TAB PO SCH (08:29)
[2020-01-29] MEDS: LORazepam 1MG TABLET PO SCH (08:29)
[2020-01-29] MEDS: LORazepam 1MG TABLET PO PRN ×2 (15:30→20:02)
[2020-01-29 18:45] VITALS: BP 134/88
[2020-01-29] MEDS ORDERED: QUETIAPINE 100MG TABLET PO SCH (21:00)
[2020-01-30] MEDS: PANTOPRAZOLE 40MG TABLET PO SCH (06:06)
[2020-01-30 07:17] VITALS: BP 126/83
[2020-01-30] MEDS: AMLODIPINE 10 MG TAB PO SCH (08:16)
[2020-01-30] MEDS: ACAMPROSATE 333 MG TABLET.DR PO SCH (08:16)
[2020-01-30] MEDS: THIAMINE 100MG TABLET PO SCH (08:16)
[2020-01-30] MEDS: PALIPERIDONE 3 MG TAB.ER.24 PO SCH (08:16)
[2020-01-30] MEDS: APIXABAN 5 MG TABLET PO SCH (08:16)
[2020-01-30] MEDS: MULTIVITAMIN 1 TABLET PO SCH (08:17)
[2020-01-30] MEDS: FOLIC ACID 1 MG TABLET PO SCH (08:17)
[2020-01-30] MEDS: LITHIUM CARBONATE 150 MG CAPSULE PO SCH (08:17)
[2020-01-30] MEDS: NICOTINE 21 MG/24 HR PATCH.TD24 TD SCH (08:17)
[2020-01-30] MEDS: AMANTADINE 100 MG CAPSULE PO SCH (08:43)
[2020-01-30] MEDS ORDERED: NICO-487 TD (10:56)
[2020-01-30] MEDS ORDERED: PALI3TAB11 PO (10:56)
[2020-01-30] MEDS ORDERED: MULT-449 PO (10:56)
[2020-01-30] MEDS ORDERED: ACAM333T7 PO (10:56)
[2020-01-30] MEDS ORDERED: LITH150C PO (10:56)
[2020-01-30] MEDS ORDERED: APIX5TAB PO (10:56)
[2020-01-30] MEDS ORDERED: AMAN100C7 PO (10:56)
[2020-01-30] MEDS ORDERED: QUET100T PO (10:56)
[2020-01-30] MEDS ORDERED: PANT40TA6 PO (10:56)
== END 2020-01-30 12:30 | disposition home or self-care (01) | DRG 750 ==
LOC: 3E 11:14
PROVIDERS: ADMIT Psychiatry & Neurology Psychosomatic Medicine; ATTEND Psychiatry & Neurology Psychosomatic Medicine
DX: F25.0 Schizoaffective disorder, bipolar type (principal); R45.851 Suicidal ideations; K21.9 Gastro-esophageal reflux disease without esophagitis; Y90.8 Blood alcohol level of 240 mg/100 ml or more; I10 Essential (primary) hypertension; G47.00 Insomnia, unspecified; G40.909 Epilepsy, unspecified, not intractable, without status epilepticus; F41.9 Anxiety disorder, unspecified; F17.200 Nicotine dependence, unspecified, uncomplicated; F15.20 Other stimulant dependence, uncomplicated; F10.20 Alcohol dependence, uncomplicated; F12.90 Cannabis use, unspecified, uncomplicated; Z79.01 Long term (current) use of anticoagulants; Z86.711 Personal history of pulmonary embolism; Z86.718 Personal history of other venous thrombosis and embolism; Z91.5 Personal history of self-harm
CPT/HCPCS: 36415; 80048; 80061; 80076; 80178; 81003; 83690; 83735; 84100; 84436; 84443; 85025; 93005

== ENCOUNTER 2020-02-12 18:18 | Emergency (ER) | payer MEDICAID ==
[~2020-02-12] VITALS: Ht 182.9 cm; Wt 77.3 kg
[~2020-02-12 18:18] MED LIST changes: +PANT40TA6 PO
--- NOTE | 2020-02-12 18:23 | NUR ---
RHETT PLASENCIA FROM [facility]- PT WAS CHECKING IN FOR ETOH DETOX AND MADE STATEMENTS OF SI, PLACED ON LEGAL HOLD. PT BECAME COMBATIVE AND WAS TRYING TO LEAVE, [facility] CALLED AND PT PLACED IN RESTRAINTS AND TRANSPORTED TO [facility]. PT COOPERATIVE AT THIS TIME, ETOH ODOR AND SLURRED SPEECH. SITTER AT DOORWAY
--- NOTE | 2020-02-12 18:43 | NUR ---
4 BAGS OF BELONGINGS PLACED IN PSYCH LOCKER
[2020-02-12 19:28] LABS: BASOPHILS % (AUTO) 2 % (0-1); EOSINOPHILS % (AUTO) 4 % (1-7); LYMPHOCYTES % (AUTO) 41 % (22-44); MEAN CORPUSCULAR HEMOGLOBIN 31.3 pg (27.5-34.5); MEAN PLATELET VOLUME 7.7 fL (7.4-10.4); MONOCYTES % (AUTO) 8 % (2-9); NEUTROPHILS % (AUTO) 46 % (42-75); PLATELET COUNT 305 x10^3/uL (130-400); RED BLOOD COUNT 5.17 x10^6/uL (4.38-5.82); RED CELL DISTRIBUTION WIDTH 14.4 % (9.4-14.8)
[2020-02-12 19:31] LABS: MD NO
[2020-02-12 19:34] LABS: ALBUMIN 3.8 g/dL (3.4-5.0); ANION GAP 7 mmol/L (5-15); CALCIUM 8.4 mg/dL (8.5-10.1); CHLORIDE 112 mmol/L (98-107); SALICYLATE LEVEL 5.6 mg/dL (2.8-20.0)
[2020-02-12 19:37] LABS: ALANINE AMINOTRANSFERASE 40 U/L (12-78); ALKALINE PHOSPHATASE 126 U/L (45-117); BILIRUBIN,TOTAL 0.2 mg/dL (0.2-1.0); CREATININE 0.95 mg/dL (0.7-1.3); TOTAL PROTEIN 7.4 g/dL (6.4-8.2)
--- NOTE | 2020-02-12 19:55 | NUR ---
TASK RN: PT BECOMING MORE AGGITATED PACING ROOM, PRIMARY RN INFORMED
--- NOTE | 2020-02-12 20:01 | NUR ---
Pt agitated and tearful, yelling out that he wants to , stating he needs to call mother to let her know he's ok. This RN allowed pt to use phone at d/c desk to call mother. Able to reach her. This RN and sitter remain with pt. Pt needed reminders not to use profanity at desk. Pt had effective conversation with mother. Back to stretcher without issue. Provided with sprite. Sitter remains in immediate vicinity of pt. Call munguia within reach.
--- NOTE | 2020-02-12 20:36 | NUR ---
Pt resting comfortably on stretcher. Visible chest rise/fall noted. No s/sx acute distress. Sitter remains within immediate vicinity of pt
--- NOTE | 2020-02-12 22:15 | NUR ---
Pt remains asleep on stretcher. Visible chest rise/fall noted by this RN. No s/sx acute distress. Sitter remains at bedside.
--- NOTE | 2020-02-12 23:00 | NUR ---
Resting comfortably on stretcher. Visible chest rise/fall noted. No s/sx acute distress. Sitter remains immediately outside of room with pt in direct line of sight. Security doors remain in place. Call light within reach
--- NOTE | 2020-02-13 00:15 | NUR ---
Pt refuses tele/VS
--- NOTE | 2020-02-13 01:17 | NUR ---
Requested UA from pt. Pt told this RN to "fuck off" again
[2020-02-13] MEDS ORDERED: LORazepam 1MG TABLET PO PRN (01:30)
--- NOTE | 2020-02-13 02:15 | NUR ---
Pt continues to refuse tele. Told this RN to "fuck off"
[2020-02-13] MEDS ORDERED: LORazepam 1MG TABLET ONE (02:28)
--- NOTE | 2020-02-13 02:45 | NUR ---
Increased anxiety/agitation noted. CIWA 14. Medicated with 2 mg PO ativan, see eMAR for details. Next CIWA assessment at 0445. Pt back onto stretcher. Bed low, bed brakes on, side rails up. Sitter remains in immediate vicinity of pt.
--- NOTE | 2020-02-13 05:00 | NUR ---
Pt continues to refuse tele, states, "I'm just trying to sleep"
--- NOTE | 2020-02-13 07:05 | NUR ---
RECEIVED REPORT FROM YUDELKA MORALES RN. PT SLEEPING ON GURROBERT. NADN. MILLIGANTER REMAINS AT BEDSIDE. ROOM REMAINS SECURE.
[2020-02-13 07:59] VITALS: BP 161/89
--- NOTE | 2020-02-13 08:01 | NUR ---
PT PROVIDED W/ SI BREAKFAST TRAY. PT RESTING ON GURNEY. NADN. SITTER REMAINS AT BEDSIDE. ROOM REMAINS SECURE. PT AWARE OF NEED FOR UA SAMPLE. STATES "I CAN'T PEE RIGHT NOW" AND IMMEDIATELY WENT BACK TO SLEEP. PT REFUSING TO ANSWER SI QUESTIONS AT THIS TIME.
--- NOTE | 2020-02-13 08:02 | NUR ---
HOSPITAL BED ORDERED FOR PT.
--- NOTE | 2020-02-13 09:54 | NUR ---
PT SLEEPING ON GURROBERT. SARINA. SITTER REMAINS AT BEDSIDE. ROOM REMAINS SECURE. PT CONTINUES TO REFUSE TO PROVIDE UA SAMPLE. REFUSES STRAIGHT CATH.
--- NOTE | 2020-02-13 10:54 | NUR ---
PT RESTING ON JELANI. SARINA. SITTER REMAINS AT [facility]. ROOM REMAINS SECURE.
--- NOTE | 2020-02-13 11:13 | NUR ---
UA COLLECTED, LABELED, AND SENT TO LAB.
--- NOTE | 2020-02-13 11:26 | NUR ---
PT MOVED FROM [facility] TO [facility] BED.
--- NOTE | 2020-02-13 11:30 | NUR ---
PT NOW COOPERATIVE. ANSWERING QUESTIONS. SI REASSESSMENT COMPLETED.
--- NOTE | 2020-02-13 11:32 | NUR ---
REPORT GIVEN TO NANY MORENO RN. ALL QUESTIONS ANSWERED. ARI MORENO TO SEE IF PT CAN GO UP NOW INSTEAD OF AT 1300.
[2020-02-13 11:37] LABS: AMPHETAMINE SCREEN, URINE Positive (Negative); BARBITURATE SCREEN, URINE Negative (Negative); BENZODIAZEPINE SCREEN, URINE Negative (Negative); CANNABINOID SCREEN, URINE Negative (Negative); COCAINE SCREEN, URINE Negative (Negative); METHADONE SCREEN, URINE Negative (Negative); OPIATE SCREEN, URINE Negative (Negative)
--- NOTE | 2020-02-13 12:35 | NUR ---
PT PROVIDED W/ SI LUNCH TRAY.
== END 2020-02-13 13:39 ==
LOC: ED 18:48
DX: T14.91XA Suicide attempt, initial encounter (principal); F39 Unspecified mood [affective] disorder; F32.9 Major depressive disorder, single episode, unspecified; I10 Essential (primary) hypertension; F17.200 Nicotine dependence, unspecified, uncomplicated; G40.909 Epilepsy, unspecified, not intractable, without status epilepticus; Z86.718 Personal history of other venous thrombosis and embolism; X58.XXXA Exposure to other specified factors, initial encounter; Y93.89 Activity, other specified; Y92.89 Other specified places as the place of occurrence of the external cause; Y99.8 Other external cause status
CPT/HCPCS: 36415; 80053; 80307; 85025; 99285

== ENCOUNTER 2020-02-13 11:57 | Inpatient (IN) | payer MEDICAID ==
[~2020-02-13] VITALS: Ht 182.9 cm; Wt 86.5 kg
[2020-02-13] MEDS ORDERED: DOCUSATE 100 MG CAPSULE PO PRN (12:30)
[2020-02-13] MEDS ORDERED: POLYETHYLENE GLYCOL 17 GM PACKET PO PRN (12:30)
[2020-02-13] MEDS ORDERED: ONDANSETRON ODT 4 MG PO PRN (12:30)
[2020-02-13] MEDS ORDERED: BISACODYL 10 MG SUPP PR PRN (12:30)
[2020-02-13] MEDS ORDERED: LORazepam 1MG TABLET PO PRN (12:30)
[2020-02-13] MEDS ORDERED: IBUPROFEN 200 MG TABLET PO PRN (13:00)
[2020-02-13] MEDS ORDERED: LORazepam 1MG TABLET ONE (13:43)
[2020-02-13] MEDS ORDERED: PLEASE ENTER HEIGHT AND WEIGHT MC SCH (14:00)
[2020-02-13 14:16] LABS: MICROSCOPIC NOT IND
[2020-02-13] MEDS: LORazepam 1MG TABLET PO SCH ×2 (14:30→20:46)
[2020-02-13 14:34] VITALS: BP 133/81
[2020-02-13] MEDS: NICOTINE 21 MG/24 HR PATCH.TD24 TD SCH (16:18)
[2020-02-13] MEDS ORDERED: NICOTINE 21 MG/24 HR PATCH.TD24 TD ONE (17:00)
[2020-02-13 18:57] VITALS: BP 133/81
[2020-02-13] MEDS: APIXABAN 5 MG TABLET PO SCH (20:46)
[2020-02-13] MEDS: AMANTADINE 100 MG CAPSULE PO SCH (22:19)
[2020-02-13] MEDS: QUETIAPINE 100MG TABLET PO SCH (22:20)
[2020-02-14 03:00] VITALS: BP 124/89
[2020-02-14] MEDS: LORazepam 1MG TABLET PO SCH ×4 (03:26→20:22)
[2020-02-14 06:02] LABS: CHOL/HDL RATIO 2.6; FREE T4 (FREE THYROXINE) 0.67 ng/dL (0.76-1.46); LDL/HDL RATIO 1.2 (0.5-3.0)
[2020-02-14] MEDS: THIAMINE 100MG TABLET PO SCH (08:37)
[2020-02-14] MEDS: APIXABAN 5 MG TABLET PO SCH ×2 (08:37→20:22)
[2020-02-14] MEDS: FOLIC ACID 1 MG TABLET PO SCH (08:37)
[2020-02-14] MEDS: AMANTADINE 100 MG CAPSULE PO SCH ×2 (08:37→20:22)
[2020-02-14 08:51] VITALS: BP 123/78
[2020-02-14] MEDS: NICOTINE 21 MG/24 HR PATCH.TD24 TD SCH (15:06)
[2020-02-14 19:52] VITALS: BP 118/77
[2020-02-14] MEDS: QUETIAPINE 100MG TABLET PO SCH (20:22)
[2020-02-15] MEDS: LORazepam 1MG TABLET PO SCH ×5 (03:00→20:12)
[2020-02-15 07:11] VITALS: BP 131/87
[2020-02-15] MEDS: FOLIC ACID 1 MG TABLET PO SCH (08:52)
[2020-02-15] MEDS: THIAMINE 100MG TABLET PO SCH (08:52)
[2020-02-15] MEDS: APIXABAN 5 MG TABLET PO SCH ×2 (08:52→20:12)
[2020-02-15] MEDS: AMANTADINE 100 MG CAPSULE PO SCH ×2 (08:59→20:12)
[2020-02-15] MEDS: ACAMPROSATE 333 MG TABLET.DR PO SCH ×2 (15:26→20:12)
[2020-02-15] MEDS: NICOTINE 21 MG/24 HR PATCH.TD24 TD SCH (15:28)
[2020-02-15] MEDS: QUETIAPINE 100MG TABLET PO SCH (20:12)
[2020-02-15 20:28] VITALS: BP 118/75
[2020-02-16] MEDS: LORazepam 1MG TABLET PO SCH ×4 (03:25→20:13)
[2020-02-16 07:21] VITALS: BP 118/78
[2020-02-16] MEDS: THIAMINE 100MG TABLET PO SCH (07:58)
[2020-02-16] MEDS: APIXABAN 5 MG TABLET PO SCH ×2 (07:58→20:13)
[2020-02-16] MEDS: FOLIC ACID 1 MG TABLET PO SCH (07:59)
[2020-02-16] MEDS: ACAMPROSATE 333 MG TABLET.DR PO SCH ×3 (07:59→20:13)
[2020-02-16] MEDS: AMANTADINE 100 MG CAPSULE PO SCH ×2 (08:31→20:13)
[2020-02-16] MEDS: NICOTINE 21 MG/24 HR PATCH.TD24 TD SCH (15:48)
[2020-02-16 19:05] VITALS: BP 129/76
[2020-02-16] MEDS: QUETIAPINE 100MG TABLET PO SCH (20:13)
[2020-02-17 06:11] LABS: CREATININE 0.99 mg/dL (0.7-1.3)
[2020-02-17 07:16] VITALS: BP 120/72
[2020-02-17] MEDS: THIAMINE 100MG TABLET PO SCH (07:51)
[2020-02-17] MEDS: APIXABAN 5 MG TABLET PO SCH (07:51)
[2020-02-17] MEDS: AMANTADINE 100 MG CAPSULE PO SCH (07:51)
[2020-02-17] MEDS: ACAMPROSATE 333 MG TABLET.DR PO SCH (07:51)
[2020-02-17] MEDS: FOLIC ACID 1 MG TABLET PO SCH (07:51)
[2020-02-17] MEDS ORDERED: PALIPERIDONE PALMITATE 156 MG/ML IM ONE (12:00)
[2020-02-17] MEDS ORDERED: LITH150C PO (12:57)
[2020-02-17] MEDS ORDERED: MULT-449 PO (12:57)
[2020-02-17] MEDS ORDERED: NICO-487 TD (12:57)
[2020-02-17] MEDS ORDERED: AMAN100C7 PO (12:57)
[2020-02-17] MEDS ORDERED: APIX5TAB PO (12:57)
[2020-02-17] MEDS ORDERED: PANT40TA6 PO (12:57)
[2020-02-17] MEDS ORDERED: ACAM333T7 PO (12:57)
[2020-02-17] MEDS ORDERED: QUET100T PO (12:57)
== END 2020-02-17 13:29 | disposition home or self-care (01) | DRG 750 ==
LOC: 3E 13:35
PROVIDERS: ADMIT Psychiatry & Neurology Psychosomatic Medicine; ATTEND Psychiatry & Neurology Psychosomatic Medicine
DX: F25.0 Schizoaffective disorder, bipolar type (principal); F31.9 Bipolar disorder, unspecified; F15.20 Other stimulant dependence, uncomplicated; F17.210 Nicotine dependence, cigarettes, uncomplicated; I10 Essential (primary) hypertension; K21.9 Gastro-esophageal reflux disease without esophagitis; R45.851 Suicidal ideations; F10.239 Alcohol dependence with withdrawal, unspecified; Z59.0 Homelessness; Z86.711 Personal history of pulmonary embolism; Z86.718 Personal history of other venous thrombosis and embolism; Z91.5 Personal history of self-harm; Z80.9 Family history of malignant neoplasm, unspecified; Z82.49 Family history of ischemic heart disease and other diseases of the circulatory system; Z79.899 Other long term (current) drug therapy; Z79.891 Long term (current) use of opiate analgesic; Z79.01 Long term (current) use of anticoagulants
CPT/HCPCS: 36415; 80061; 81003; 82140; 82565; 84439; 84443; 93005; Q0162; J2426

== ENCOUNTER → 2020-03-30 | Emergency (ER) | payer MEDICAID ==
[~2020-03-30] VITALS: Ht 180.3 cm; Wt 81.8 kg
[~2020-03-30] MED LIST changes: +AMLO-211 PO; -AMLO10TA8 PO; +MIRT-38 PO; -MIRT30TA PO
--- NOTE | 2020-03-30 14:52 | NUR ---
BIB EMS PT DRANK 14 HURRICANES AND CALLED 911. EMS ARRIVED AND PT STATED HE WANTED TO COME TO THE HOSPITAL. PER EMS PT WANTED TO BRING 3 OTHER DRINKS WITH HIM TO DRINK IN ED AND ONCE EMS POURED THEM DOWN THE DRAIN PT CLAIMES SI.PT DENIES PLAN. HX SI W/ SA CUTTING. 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 ROOM SECURED. SITTER AT BEDSIDE. PERSONAL BELINGINGS BAG (4 OF 4) PLACED IN SECURE LOCKER. ERP DR. BERMUDEZ AT BEDSIDE.
[2020-03-30 15:21] LABS: MICROSCOPIC NOT IND
[2020-03-30 15:28] LABS: BASOPHILS % (AUTO) 2 % (0-1); EOSINOPHILS % (AUTO) 2 % (1-7); LYMPHOCYTES % (AUTO) 27 % (22-44); MEAN CORPUSCULAR HEMOGLOBIN 32.4 pg (27.5-34.5); MEAN CORPUSCULAR HGB CONC 33.7 g/dL (33.2-36.2); MEAN PLATELET VOLUME 7.7 fL (7.4-10.4); MONOCYTES % (AUTO) 10 % (2-9); NEUTROPHILS % (AUTO) 59 % (42-75); PLATELET COUNT 286 x10^3/uL (130-400); RED BLOOD COUNT 4.78 x10^6/uL (4.38-5.82); RED CELL DISTRIBUTION WIDTH 14.6 % (9.4-14.8)
[2020-03-30 15:34] LABS: ALBUMIN 3.9 g/dL (3.4-5.0); ANION GAP 8 mmol/L (5-15); CALCIUM 8.5 mg/dL (8.5-10.1); CHLORIDE 110 mmol/L (98-107); SALICYLATE LEVEL 5.1 mg/dL (2.8-20.0)
[2020-03-30 15:36] LABS: AMPHETAMINE SCREEN, URINE Negative (Negative); BARBITURATE SCREEN, URINE Negative (Negative); BENZODIAZEPINE SCREEN, URINE Negative (Negative); CANNABINOID SCREEN, URINE Negative (Negative); COCAINE SCREEN, URINE Negative (Negative); METHADONE SCREEN, URINE Negative (Negative); OPIATE SCREEN, URINE Negative (Negative)
--- NOTE | 2020-03-30 15:37 | NUR ---
BREAK RN: ROOM SECURED BY THIS RN, BELONGINGS TAGGED WITH PATIENT LABELS AND PLACED IN LOCKED STORAGE. UA/UDS COLLECTED AND SENT. SITTER AT DOOR
[2020-03-30 15:38] LABS: MD NO
[2020-03-30 15:45] LABS: ALANINE AMINOTRANSFERASE 46 U/L (12-78); ALKALINE PHOSPHATASE 116 U/L (45-117); BILIRUBIN,TOTAL 0.3 mg/dL (0.2-1.0); CREATININE 0.85 mg/dL (0.7-1.3); TOTAL PROTEIN 7.4 g/dL (6.4-8.2)
--- NOTE | 2020-03-30 16:58 | NUR ---
PT SLEEPING ON JELANI. NADN. GORDON.
--- NOTE | 2020-03-30 17:52 | NUR ---
PT SLEEPING ON GURROBERT. SARINA. SITTER REMAINS AT BEDSIDE. ROOM REMAINS SECURE.
--- NOTE | 2020-03-30 18:26 | NUR ---
PT SLEEPING IN BED. NADN. GORDON.
--- NOTE | 2020-03-30 18:51 | NUR ---
REPORT GIVEN TO YUDELKA BLEDSOE RN.
--- NOTE | 2020-03-30 19:50 | NUR ---
PT SLEEPING ON GURNEY AT THIS TIME. ROOM SECURED AND SITTER AT DOORWAY. WILL CONT TO MONITOR.
--- NOTE | 2020-03-30 21:43 | NUR ---
PT AMBULATED TO RESTROOM, YELLING AT RN FOR WATER. PT AMBULATES WITH STEADY GAIT. WATER PROVIDED. PT BREATHALYZED 0.186. TY BERMUDEZ AWARE.
--- NOTE | 2020-03-30 22:00 | NUR ---
PT REFUSING VITALS AT THIS TIME.
--- NOTE | 2020-03-30 22:50 | NUR ---
report from juan jeronimo. pt transferred to ed room 3. room secure. sitter in view of pt. pt still intoxicated. will reassess when sober
--- NOTE | 2020-03-31 00:10 | NUR ---
PT RESTING IN NAD. SITTER IN VIEW OF PT.
--- NOTE | 2020-03-31 01:24 | NUR ---
PT SLEEPING ON GURNEY AT THIS TIME. ROOM SECURED AND SITTER AT DOORWAY. WILL CONT TO MONITOR. SITTER IN VIEW OF PT.
--- NOTE | 2020-03-31 03:18 | NUR ---
PT TO BE PLACED ON LEGAL HOLD. ROOM SECURED. VSS. SITTER IN VIEW OF PT.
--- NOTE | 2020-03-31 04:50 | NUR ---
PT SLEEPING ON GURNEY AT THIS TIME. ROOM SECURED AND SITTER AT DOORWAY. WILL CONT TO MONITOR.
--- NOTE | 2020-03-31 05:55 | NUR ---
PT RESTING IN NAD. SITTER IN VIEW OF PT.
--- NOTE | 2020-03-31 06:08 | NUR ---
Psych packet faxed to [facility], Rich, Andre Villarreal, RB, [facility].
--- NOTE | 2020-03-31 06:14 | NUR ---
PT SWABBED FOR COVID. PT TO BE ACCEPTED BY [facility] PNDING RESULTS. PT TOLERATED WELL AND IS NOW BACK TO SLEEP. SITTER IN VIEW OF PT.
--- NOTE | 2020-03-31 06:54 | NUR ---
REPORT TO DARWIN CHAPMAN
--- NOTE | 2020-03-31 07:02 | NUR ---
REPORT RECEIVED FROM ARI BROWNLEE AT BEDSIDE, PT SLEEPING, RESPS EVEN AND UNLABORED. ROOM SECURE. SITTER MONITORING FROM [facility] FOR SAFETY.
--- NOTE | 2020-03-31 09:00 | NUR ---
REPORT GIVEN TO U RN BALDO WHO IS ASSUMING CARE UPON TRANSFER TO [facility]. PT SLEEPING, RESPS EVEN AND UNLABORED, NADN. AWAITING TRANSPORT AT THIS TIME.
[2020-03-31 09:21] VITALS: BP 152/109
--- NOTE | 2020-03-31 09:28 | NUR ---
PT AWAKENED BY RN FOR AM ASSESSMENT. VS, PHYSICAL AND PSYCH REASSESSMENT COMPLETE. PT CONFIRMS HE IS STILL SUICIDAL, STATES HIS PLAN PRIOR TO ADMIT WAS TO "OVERDOSE ON PILLS OR JUMP OFF A BRIDGE OR WHATEVER". PT IS A&OX4, RESPS EVEN AND UNLABORED. FINE TREMORS NOTED WITH ARMS EXTENDED, NEURO INTACT. PSYSMARIMAR SALINAS PAGED FOR ATIVAN ORDER. NO ANSWER, MESSAGE LEFT WITH CALLBACK NUMBER.
--- NOTE | 2020-03-31 10:05 | NUR ---
late entry for 1005: this RN spoke with psych [employer]OMET[employer] ASSISTANT Friend, MAULIK notified pt has tremors noted with arms extended, suspect for alcohol withdrawal. ativan order requested. MAULIK states he will do full admit assessment with orders once pt is admitted to [facility]. pt to be transported shortly.
== END ==
LOC: ED 19:02
DX: F10.220 Alcohol dependence with intoxication, uncomplicated (principal); F33.9 Major depressive disorder, recurrent, unspecified; F17.200 Nicotine dependence, unspecified, uncomplicated; I10 Essential (primary) hypertension; G40.909 Epilepsy, unspecified, not intractable, without status epilepticus; Y90.0 Blood alcohol level of less than 20 mg/100 ml
CPT/HCPCS: 36415; 80053; 80299; 80307; 80320; 80329; 81003; 84443; 85025; 87635; 99285; G0480

== ENCOUNTER 2020-03-31 05:57 | Inpatient (IN) | payer MEDICAID ==
[~2020-03-31] VITALS: Ht 182.9 cm; Wt 84.9 kg
[2020-03-31] MEDS ORDERED: DOCUSATE 100 MG CAPSULE PO PRN (06:30)
[2020-03-31] MEDS ORDERED: ACETAMINOPHEN 325 MG TABLET PO PRN (06:30)
[2020-03-31] MEDS ORDERED: POLYETHYLENE GLYCOL 17 GM PACKET PO PRN (06:30)
[2020-03-31] MEDS ORDERED: BISACODYL 10 MG SUPP PR PRN (06:30)
[2020-03-31] MEDS ORDERED: LORazepam 1MG TABLET PO PRN (07:00)
[2020-03-31] MEDS ORDERED: PLEASE ENTER HEIGHT AND WEIGHT MC SCH (10:30)
[2020-03-31] MEDS ORDERED: LORazepam 1MG TABLET ONE (10:40)
[2020-03-31 11:07] VITALS: BP 155/88
[2020-03-31] MEDS: ACAMPROSATE 333 MG TABLET.DR PO SCH ×3 (13:20→20:37)
[2020-03-31] MEDS: LITHIUM CARBONATE 150 MG CAPSULE PO SCH ×2 (13:21→20:37)
[2020-03-31] MEDS: NICOTINE 21 MG/24 HR PATCH.TD24 TD SCH (13:21)
[2020-03-31] MEDS: MULTIVITAMIN 1 TABLET PO SCH (13:21)
[2020-03-31] MEDS: PALIPERIDONE 3 MG TAB.ER.24 PO SCH (13:31)
[2020-03-31] MEDS: AMANTADINE 100 MG CAPSULE PO SCH ×2 (13:31→21:27)
[2020-03-31] MEDS: LORazepam 1MG TABLET PO PRN ×2 (15:24→21:26)
[2020-03-31] MEDS: ONDANSETRON ODT 4 MG PO PRN (15:30)
[2020-03-31 19:03] VITALS: BP 134/89
[2020-03-31] MEDS: QUETIAPINE 200 MG TABLET PO SCH (20:37)
[2020-03-31] MEDS: APIXABAN 5 MG TABLET PO SCH (20:37)
[2020-04-01 07:20] VITALS: BP 136/88
[2020-04-01] MEDS: ONDANSETRON ODT 4 MG PO PRN ×2 (08:14→15:11)
[2020-04-01] MEDS: AMANTADINE 100 MG CAPSULE PO SCH ×2 (08:57→21:11)
[2020-04-01] MEDS: PALIPERIDONE 3 MG TAB.ER.24 PO SCH (08:57)
[2020-04-01] MEDS: APIXABAN 5 MG TABLET PO SCH ×2 (08:58→20:08)
[2020-04-01] MEDS: LITHIUM CARBONATE 150 MG CAPSULE PO SCH ×2 (08:58→20:08)
[2020-04-01] MEDS: ACAMPROSATE 333 MG TABLET.DR PO SCH ×3 (08:58→20:08)
[2020-04-01] MEDS: LORazepam 1MG TABLET PO PRN ×3 (08:59→21:11)
[2020-04-01] MEDS: MULTIVITAMIN 1 TABLET PO SCH (08:59)
[2020-04-01] MEDS: NICOTINE 21 MG/24 HR PATCH.TD24 TD SCH (09:00)
[2020-04-01 19:18] VITALS: BP 123/79
[2020-04-01] MEDS: QUETIAPINE 200 MG TABLET PO SCH (20:08)
[2020-04-02 07:00] VITALS: BP 118/79
[2020-04-02] MEDS: AMANTADINE 100 MG CAPSULE PO SCH ×2 (08:50→20:52)
[2020-04-02] MEDS: NICOTINE 21 MG/24 HR PATCH.TD24 TD SCH (08:50)
[2020-04-02] MEDS: MULTIVITAMIN 1 TABLET PO SCH (08:51)
[2020-04-02] MEDS: APIXABAN 5 MG TABLET PO SCH ×2 (08:51→20:36)
[2020-04-02] MEDS: ACAMPROSATE 333 MG TABLET.DR PO SCH ×3 (08:51→20:36)
[2020-04-02] MEDS: PALIPERIDONE 3 MG TAB.ER.24 PO SCH (08:51)
[2020-04-02] MEDS: LORazepam 1MG TABLET PO PRN ×2 (08:52→20:36)
[2020-04-02] MEDS: LITHIUM CARBONATE 150 MG CAPSULE PO SCH ×2 (08:52→20:36)
[2020-04-02 12:45] VITALS: BP 134/89
[2020-04-02 16:20] VITALS: BP 125/79
[2020-04-02 19:40] VITALS: BP 132/91
[2020-04-02] MEDS: QUETIAPINE 200 MG TABLET PO SCH (20:36)
[2020-04-03] MEDS: LORazepam 1MG TABLET PO PRN (04:17)
[2020-04-03 07:25] VITALS: BP 129/86
[2020-04-03] MEDS: ACAMPROSATE 333 MG TABLET.DR PO SCH ×3 (09:13→20:20)
[2020-04-03] MEDS: APIXABAN 5 MG TABLET PO SCH ×2 (09:13→20:20)
[2020-04-03] MEDS: PALIPERIDONE 3 MG TAB.ER.24 PO SCH (09:13)
[2020-04-03] MEDS: LITHIUM CARBONATE 150 MG CAPSULE PO SCH ×2 (09:14→20:20)
[2020-04-03] MEDS: AMANTADINE 100 MG CAPSULE PO SCH ×2 (09:14→20:20)
[2020-04-03] MEDS: MULTIVITAMIN 1 TABLET PO SCH (09:14)
[2020-04-03] MEDS: NICOTINE 21 MG/24 HR PATCH.TD24 TD SCH (09:16)
[2020-04-03] MEDS ORDERED: NICO-487 TD (11:27)
[2020-04-03] MEDS ORDERED: PALI3TAB11 PO (11:27)
[2020-04-03] MEDS ORDERED: APIX5TAB PO (11:27)
[2020-04-03] MEDS ORDERED: PANT40TA6 PO (11:27)
[2020-04-03] MEDS ORDERED: QUET200T PO (11:27)
[2020-04-03] MEDS ORDERED: MULT-449 PO (11:27)
[2020-04-03] MEDS ORDERED: LITH150C PO (11:27)
[2020-04-03] MEDS ORDERED: AMAN100C7 PO (11:27)
[2020-04-03] MEDS ORDERED: ACAM333T7 PO (11:27)
[2020-04-03] MEDS ORDERED: HYDROXYZINE PAMOATE 50MG CAP PO ONE ×2 (16:30→22:30)
[2020-04-03 20:00] VITALS: BP 139/91
[2020-04-03] MEDS: QUETIAPINE 200 MG TABLET PO SCH (20:20)
[2020-04-04 07:24] VITALS: BP 127/86
[2020-04-04] MEDS: AMANTADINE 100 MG CAPSULE PO SCH (08:34)
[2020-04-04] MEDS: NICOTINE 21 MG/24 HR PATCH.TD24 TD SCH (08:34)
[2020-04-04] MEDS: ACAMPROSATE 333 MG TABLET.DR PO SCH (08:34)
[2020-04-04] MEDS: LITHIUM CARBONATE 150 MG CAPSULE PO SCH (08:35)
[2020-04-04] MEDS: PALIPERIDONE 3 MG TAB.ER.24 PO SCH (08:35)
[2020-04-04] MEDS: MULTIVITAMIN 1 TABLET PO SCH (08:35)
[2020-04-04] MEDS: APIXABAN 5 MG TABLET PO SCH (08:35)
== END 2020-04-04 13:20 | disposition home or self-care (01) | DRG 750 ==
LOC: 3E 10:19
PROVIDERS: ADMIT Psychiatry & Neurology Psychosomatic Medicine; ATTEND Psychiatry & Neurology Psychosomatic Medicine
DX: F25.1 Schizoaffective disorder, depressive type (principal); F10.20 Alcohol dependence, uncomplicated; F15.20 Other stimulant dependence, uncomplicated; F25.0 Schizoaffective disorder, bipolar type; G47.00 Insomnia, unspecified; I10 Essential (primary) hypertension; K21.9 Gastro-esophageal reflux disease without esophagitis; R45.851 Suicidal ideations; Z79.899 Other long term (current) drug therapy; Z86.711 Personal history of pulmonary embolism; Z86.718 Personal history of other venous thrombosis and embolism; Z79.01 Long term (current) use of anticoagulants; Z79.891 Long term (current) use of opiate analgesic; Z88.0 Allergy status to penicillin; Z88.8 Allergy status to other drugs, medicaments and biological substances; Z80.9 Family history of malignant neoplasm, unspecified; Z82.49 Family history of ischemic heart disease and other diseases of the circulatory system; Z56.0 Unemployment, unspecified
CPT/HCPCS: 36415; 71045; 80178; 93005; Q0162

== ENCOUNTER 2020-08-04 03:36 | Emergency (ER) | payer MEDICAID ==
[~2020-08-04] VITALS: Ht 185.4 cm; Wt 84.2 kg
[~2020-08-04 03:36] MED LIST changes: -NICO-487 TD; +NICO-587 TD; +TRIH5TAB16 PO; -TRIH5TAB2 PO
[2020-08-04 03:42] VITALS: BP 144/95
--- NOTE | 2020-08-04 04:24 | NUR ---
PA WENT TO ASSESS PT. PT ELOPED. STAFF SAW PT LEAVE ER.
--- NOTE | 2020-08-04 04:37 | NUR ---
PT STILL NOT IN LOBBY WHEN CALLED TO BE ASSESSED.
== END 2020-08-04 04:40 | disposition left against medical advice (07) ==
LOC: ED 04:34
DX: R21 Rash and other nonspecific skin eruption (principal); Z53.21 Procedure and treatment not carried out due to patient leaving prior to being seen by health care provider

== ENCOUNTER 2020-08-07 13:21 | Emergency (ER) | payer MEDICAID ==
[~2020-08-07] VITALS: Ht 182.9 cm; Wt 85.5 kg
--- NOTE | 2020-08-07 13:58 | NUR ---
PT STATES RASH STARTED ABOUT 4-5 DAYS AGO AND HAS BEEN SCRATCHING IT MAKING A WOUND ON HIS RIGHT LEG. RASH NOTED TO BE OVER PTS BODY, ARMS, AND LEGS. SWELLING NOTED IN RIGHT LEG. PT HAS HISTORY OF PE'S, AND DVTS.
[2020-08-07] MEDS ORDERED: hydrOXyzine 50MG TABLET PO ONE (14:30)
[2020-08-07 14:46] LABS: ALBUMIN 3.7 g/dL (3.4-5.0); ANION GAP 7 mmol/L (5-15); CALCIUM 8.6 mg/dL (8.5-10.1); CHLORIDE 110 mmol/L (98-107); CREATININE 1.02 mg/dL (0.7-1.3)
[2020-08-07 14:48] LABS: BASOPHILS % (AUTO) 1 % (0-1); EOSINOPHILS % (AUTO) 6 % (1-7); LYMPHOCYTES % (AUTO) 18 % (22-44); MEAN CORPUSCULAR HGB CONC 33.7 g/dL (33.2-36.2); MEAN PLATELET VOLUME 8.9 fL (7.4-10.4); MONOCYTES % (AUTO) 15 % (2-9); NEUTROPHILS % (AUTO) 61 % (42-75); PLATELET COUNT 210 x10^3/uL (130-400); RED BLOOD COUNT 4.85 x10^6/uL (4.38-5.82); RED CELL DISTRIBUTION WIDTH 13.3 % (9.4-14.8)
[2020-08-07 15:18] LABS: MD NO
--- NOTE | 2020-08-07 15:42 | NUR ---
PT IS RESTING IN BED. ATTACHED TO MONITORS. BED IN LOW POSITION. CALVIN LIGHT WITHIN REACH.
[2020-08-07 16:30] VITALS: BP 139/59
== END 2020-08-07 16:33 | disposition home or self-care (01) ==
LOC: ED 14:21
DX: B86 Scabies (principal); L03.116 Cellulitis of left lower limb; L03.115 Cellulitis of right lower limb
CPT/HCPCS: 36415; 80048; 82040; 85025; 99283

== ENCOUNTER 2020-09-15 02:21 | Emergency (ER) | payer MEDICAID ==
[~2020-09-15] VITALS: Ht 167.6 cm; Wt 61.0 kg
[2020-09-15 02:36] VITALS: BP 121/51
== END 2020-09-15 02:49 | disposition home or self-care (01) ==
LOC: ED 02:43
DX: B86 Scabies (principal); R21 Rash and other nonspecific skin eruption; I10 Essential (primary) hypertension; G40.802 Other epilepsy, not intractable, without status epilepticus; Z86.718 Personal history of other venous thrombosis and embolism
CPT/HCPCS: 99283